=== PATIENT | female | born 1955 | race Caucasian/White ===

== ENCOUNTER 2023-12-24 12:06 | Inpatient (IN) | payer BC, MEDICARE, SELFPAY ==
[2023-12-24] VITALS (15 sets, daily range): BP systolic 90–124; BP diastolic 40–56; PULSE 2; BMI 30.7
--- NOTE | 2023-12-24 10:42 | ITS.CL.CATH ---
Production Engineer - Catheterization
Cardiac Catheterization
Procedure Report:
CARDIAC CATHETERIZATION REPORT
Date of Procedure: 12/24/2023
Referring: Fawn Archuleta MD
Indication: Post infarction recurrent ischemia with pulmonary edema
HEMODYNAMIC DATA
AO: 107/52
LV: 107/20
PCWP: 25
PA: 50/27
RV: 50/19
RA: 18
Oximetry: Ao 95%, PA 62%, cardiac output 4.5, cardiac index 2.3
LEFT VENTRICULOGRAPHY: Distal anterolateral and apical hypokinesis with EF 42%
CORONARY ANGIOGRAPHY
Dominance: Right
Left Main: Normal
LAD: Focal 90% mid LAD lesion with AMARJIT grade III flow distally with otherwise mild luminal disease
Circumflex: Normal
RCA: Trivial luminal irregularities in the mid RCA
Angioplasty: Patient underwent LAD PCI at the conclusion of the diagnostic study. Heparin was used for anticoagulation. Plavix 600 mg was administered at the procedure conclusion. A 6 [place] EBU 3.5 guide catheter was used. A BMW wire was easily
passed through the lesion. Direct stenting with a 3.0 x 12 Xience [place] point JUSTYN deployed at 14 olivia was followed by postdilatation with a 3.0 NC trek to 17 olivia. The final angiographic result was outstanding. There were no procedural complications.
Closure Device: None-the procedure was performed via the right radial artery and right femoral vein
Radiation dose (mGy): 511
DAP (cm2.Gy): 34.0
Fluoroscopy time: 6.9 minutes
CONCLUSIONS:
1. Elevated filling pressures with moderate pulmonary hypertension
2. Distal anterolateral and apical hypokinesis with EF 42%
3. Single-vessel CAD as described
4. Successful stenting of mid LAD lesion using 3.0 x 12 Xience JUSTYN with outstanding result
RECOMMENDATIONS: Continue medical therapy for CHF/LV dysfunction. Recommend DAPT for 12 months. Recommend echocardiography in 3 months
Copy to: Abdirahman Diaz DO, Marissa Isaac DO
Camden Cleveland MD, FACC, [facility]
--- NOTE | 2023-12-24 10:44 | CON.CAR ---
Consultation
Consultation Request
Date/Time Consultation Requested: 12/24/2023, 345pm
Date/Time Consultation Performed: 12/24/2023
Requesting Provider: Hospitalist
Performing Provider: turner
Reason for Consultation: NV
Medical History
-
Chief Complaint: Chest pain/SOB
History of Present Illness:
68 yo woman transferred for emergent cath after developing recurrent CP with pulmonary edema. She was admitted to [facility] 12-21 several days after TKA. She presented with SOB and some chest pain. CTA was negative for PE. She has chronic LBBB on
ECG. Cardiac enzymes were abnormal peaking at 1300 (hs TnI). I spoke late Monday afternoon with Dr Bonilla and she was clinically and hemodynamically stable at that time. Hb was low at 7.3 and plan was for tranfusion, diuresis and reevaluation Sat
12-22 to determine when to proceed with cardiac cath. On 12-22 she was evaluated by Dr Archuleta at [facility] and remained stable. Transfusion of 2 U PRBC had been given. She was treated with ASA and UFH and felt stable for deferring cath until 12-24.
Arrangements made for elective transfer. She had shortness of breath yesterday requiring BiPAP. This AM she was noted to develop recurrent chest pain radiating to back with acute CHF. I spoke with Dr Archuleta and arrangements made for emergent
transfer to the chemistry lab instructor at .
Cardiac cath showed distal anterolateral and apical hypokinesis, EF 42%, and single-vessel CAD with a 90% mid LAD lesion that was stented. She had elevated left and right heart filling pressures with moderate pulmonary hypertension.
Exam: Blood pressure 102/60, heart rate 76, respiratory 20
Neck no JVD visible
Cardiac: RRR S1-S2 no murmur
Lungs: Bibasilar rales
Extremities: Mild edema
Impression: 68-year-old woman with NV following TKA last week who developed worsening heart failure and recurrent ischemia with second elevation in cardiac enzymes last night into this morning. She was transferred urgently to [facility]
underwent catheterization demonstrating elevated filling pressures, mild to moderate left ventricular dysfunction, and single-vessel CAD with 90% mid LAD lesion which was stented.
Plan:
-DAPT for 12 months
-We will treat left ventricular dysfunction with lisinopril and metoprolol
-Repeat echo in 3 months. No indication to do a follow-up echo tomorrow as the patient had an echo 48 hours ago and a left ventriculogram today
-She will be admitted to the hospital service for management of her medical problems-I am quite concerned that she is infected with pneumonia and will need evaluation to be sure there is no joint infection
CCT 32 minutes
--- NOTE | 2023-12-24 13:55 | PTCARENOTE ---
Received the patient from the laboratory machinist in her bed. The patient is aaox3, vvs, 95% on 6L. Right wrist R-band intact. Positive right radial pulse noted. Right groin dressing c/d/i with a positive right pedal pulse noted. NSR is noted on the monitor.
She denies chest pain however, she does complain of right knee pain. she rates it a 5/10 on scale. An Aquacel dressing is cover her right knee. I instructed the patient on her activity restrictions and expected oob time. I oriented her to her room.
Her call barkley is within reach.
[2023-12-24] MEDS: TYLENOL 650 MG PO (14:17)
--- NOTE | 2023-12-24 14:29 | HPS.HSE ---
Addendum entered and electronically signed by Durga Rivera DO 01/01/24 14:40:
Home meds:
bupropion HCl 150 mg tablet,12 hr sustained-release (Wellbutrin SR) 150 mg PO DAILY 12/25/23
sertraline 100 mg tablet 100 mg PO DAILY 12/25/23
hydroxyzine pamoate 25 mg capsule 25 mg DAILY PRN anxiety 12/26/23
loperamide 2 mg-simethicone 125 mg tablet 1 tab PO Q3H PRN diarrhea 12/26/23
aspirin 81 mg chewable tablet (Children's Aspirin) 81 mg PO DAILY #100 tabs 12/28/23
clopidogrel 75 mg tablet 75 mg PO DAILY #30 tabs 12/28/23
furosemide 40 mg tablet 40 mg PO DAILY #30 tabs 12/28/23
lisinopril 2.5 mg tablet 2.5 mg PO DAILY #30 tabs 12/28/23
metoprolol tartrate 25 mg tablet 12.5 mg (1/2 x 25 mg) PO BID #30 tabs 12/28/23
potassium chloride 20 mEq tablet,extended release(part/cryst) 40 meq (2 x 20 mEq) PO DAILY #60 tabs 12/28/23
rosuvastatin 20 mg tablet 20 mg PO QPM #30 tabs 12/28/23
Addendum entered and electronically signed by Durga Rivera DO 12/24/23 16:31:
Procalcitonin 0.17. Afebrile. Will discontinue further antibiotics and observe.
Original Note:
Family Physician
-
Family Physician: Marissa Isaac
Chief Complaint
-
Transfer for cardiac catheterization
History of Present Illness
68-year-old female transferred from [facility] today for cardiac catheterization. Underwent stenting of her mid LAD today and we were asked to admit to our service.
Underwent right total knee arthroplasty on Monday, December 17. Started developing weakness malaise shortness of breath and cough on December 19. Went back to [facility] on December 20 and was admitted to the hospital
for workup of shortness of breath.
Admission diagnosis was possible congestive heart failure versus pneumonia, possible sepsis. Diagnosed with NSTEMI. Pulmonary embolism ruled out. Small to moderate right and small left pleural effusions noted on CT scan. Extensive interstitial
thickening and groundglass opacities throughout the lungs consistent with pulmonary edema.
Noted to have low-grade fever and mild leukocytosis with white blood cell count of 13,000 on admission, broad-spectrum antibiotics started.
Transfused 1 unit of packed red blood cells on December 21 due to postoperative anemia, hemoglobin was 7.3.
At some point required Levophed for hypotension, Precedex for agitation.
Medical History
Past Medical History
Past Medical History: Reports Other
Additional Past Medical History:
Essential hypertension
Osteoarthritis
Anxiety disorder
Colon cancer
Depression
Hyperlipidemia
Past Surgical History: Reports Other
Additional Past Surgical History:
Bowel resection
Breast biopsy
Right total knee arthroplasty
Social History
Tobacco: Former Smoker
Alcohol: Daily
Drug: None
Personal:
Living: With Family
Family History
Family History: Not pertinent
Allergies / Home Medications
Allergies reflects when Allergies were last updated in [employer].
Home Medications with original date entered in [employer]
Allergy/Medication List:
Allergies
Allergy/AdvReac Type Severity Reaction Status Date / Time
Latex, Natural Rubber Allergy Unknown Verified 12/24/23 13:29
oxycodone [From Percocet] Allergy Unknown Verified 12/24/23 13:29
Review of Systems
-
History Source: Patient
A 12 point ROS was completed and negative except as noted: Yes
Respiratory: Reports Cough
Physical Exam
Vital Signs
Vital Signs
Pulse BP Pulse Ox
67 98/47 93
04/21/24 14:00 12/24/23 14:00 12/24/23 14:00
Physical Exam
General: Well Developed, Well Nourished, No Apparent Distress and Comfortable
HEENT: NormoCephalic, Anicteric and Moist mucous membranes
Respiratory: Rhonchi
Cardiac: Regular Rhythm
Breast: Deferred by me
GI: Soft, Non Tender and Non Distended
Genito-urinary: Deferred by me
Musculoskeletal: No Clubbing, No Cyanosis and Edema, Right Upper Extremity
Skin: Warm, Dry and Other (Right knee dressing intact)
Neuro: AO x 3
Hematologic/Lymphatic: No Lymphadenopathy
Psych: Calm
Laboratory Results
-
12/24/23 13:31
12/24/23 13:54
Laboratory Results
Total Bilirubin Cancelled 12/24/23 13:54
AST Cancelled 12/24/23 13:54
ALT Cancelled 12/24/23 13:54
Alkaline Phosphatase Cancelled 12/24/23 13:54
Impression/Plan
-
Acute hypoxic respiratory failure -initially on BiPAP in [facility] but transition to nasal cannula oxygen during the day and BiPAP at nighttime. Currently on 6 L nasal cannula, wean down as able. Overall patient feels clinically improved
after cardiac catheterization today with less shortness of breath. Will place on CPAP at nighttime. TALHA suspect, will need outpatient sleep study.
NSTEMI -stable after cardiac catheterization today, drug-eluting stent placed to the mid LAD. Continue dual antiplatelet therapy. Cardiology following.
Recent sepsis -presumably due to pneumonia. Continue empiric antibiotics for now. Chest x-ray in the morning. Check procalcitonin.
Acute heart failure with reduced EF exacerbation -likely triggered by NSTEMI. Diuretics per cardiology.
Recent right total knee arthroplasty -consult PT/OT. Follow-up with orthopedics after discharge.
Postoperative anemia -required blood transfusion in [facility], likely postoperative acute blood loss anemia. Check hemoglobin in the morning.
Essential hypertension -relatively hypotensive.
Obesity due to excess calories
Full code
Spent 80 minutes reviewing records, discussing with physicians in our hospital, physicians in [facility], etc.
Discussed with Dr. Cleveland.
[2023-12-24 15:38] LABS: ALT (SGPT) 101 U/L (0-35); AST (SGOT) 74 U/L (14-36); Albumin 2.9 g/dl (3.5-5.0); Alkaline Phosphatase 237 U/L (38-126); Blood Urea Nitrogen 23 mg/dl (7-17); Carbon Dioxide 21 mmol/L (22-30); Chloride 105 mmol/L (98-107); Glucose 103 mg/dl (70-99); Potassium 3.7 mmol/L (3.5-5.1); Sodium 133 mmol/L (135-145); Total Bilirubin 1.9 mg/dl (0.2-1.3); Total Protein 5.6 g/dl (6.3-8.2); eGFR > 60.00
[2023-12-24] MEDS: LASIX 20 MG IV (15:42)
[2023-12-24] MEDS: FLUSH (NSS) 2 FLUSH IV (15:43)
[2023-12-24 15:50] LABS: Procalcitonin 0.17 ng/ml (0.0-0.25)
[2023-12-24] MEDS: CRESTOR 20 MG PO (17:51)
[2023-12-24] MEDS: LOVENOX 40 MG SC (17:51)
[2023-12-24] MEDS: ULTRAM 50 MG PO (20:48)
--- NOTE | 2023-12-24 21:55 | PTCARENOTE ---
Assumed care of patient at change of shift w/ spouse at bedside. Patient c/o 6/10 right knee pain, and describes as (throbbing/sharp). Roberto FELDER made aware and orders obtained for 50mg of Ultram. Medication administered at 20:48. Pt AAOx3,
tele monitor shows SR w/ BBBC, and sating 93-97% on 5L of O2. Pt appears WALTERS and at rest. Instructed pt to perform deep breathing exercises. Patient refuses to wear CPAP at HS. Right groin and right radial site C/D/I and no hematoma noted at this
time. Patient aware of activity restrictions. Right knee Aquacel dressing intact w/ ecchymosis below dressing. Swelling noted to patients: right thigh, knee, calf, and ankle. Right leg warm to touch and strong right DP pulse.Patient reports the
Aquacel dressing is due to come off tomorrow. Aware of POC, call barkley in reach.
[2023-12-25] VITALS (9 sets, daily range): BP systolic 100–130; BP diastolic 46–74; PULSE 77; O2SAT 95; BMI 30.4
[2023-12-25] MEDS: TYLENOL 650 MG PO ×2 (02:08→22:44)
[2023-12-25] MEDS: ROXICODONE 5 MG PO (03:06)
[2023-12-25 04:09] LABS: Hematocrit 24.5 % (37.0-47.0); Hemoglobin 8.1 g/dL (12.0-16.0); Mean Corp Hgb Conc. 33.1 g/dL (33.0-37.0); Mean Corpuscular Volume 96.8 fL (81.0-99.0); Mean Platelet Volume 10.7 fL (7.4-10.4); Platelet Count 145 10^3/uL (130-400); Red Blood Cell Count 2.53 10^6/uL (4.20-5.40); Red Cell Dist. Width 13.9 % (11.5-14.5); White Blood Cell Count 6.5 10^3/uL (4.8-10.8)
[2023-12-25 04:31] LABS: Blood Urea Nitrogen 20 mg/dl (7-17); Calcium 8.4 mg/dl (8.4-10.2); Carbon Dioxide 22 mmol/L (22-30); Chloride 108 mmol/L (98-107); Estimated Creatinine Clearance 96 ml/min; Glucose 97 mg/dl (70-99); Potassium 3.8 mmol/L (3.5-5.1); Sodium 135 mmol/L (135-145); eGFR > 60.00
--- NOTE | 2023-12-25 04:55 | PTCARENOTE ---
Patient restless in room and wincing with pain. Patient c/o right knee pain. Pain level 7/10 at rest and worse w/ movement. Patient not yet due for Ultram. Patient reports having Roxicodone at the other hospital, and it gave her good relief.
Reviewed allergy list w/ patient, confirmed she has taken Roxicodone in the past with no reaction. Jessie FELDER made aware and orders obtained for one time dose of 5mg Roxicodone. Patient w/ good relief, and reevaluated with no side
effects. Pain level decreased to a 4/10. Call barkley in reach.
[2023-12-25] MEDS: ZESTRIL 2.5 MG PO (08:19)
[2023-12-25] MEDS: ZOLOFT 100 MG PO (08:19)
[2023-12-25] MEDS: LOW STRENGTH ASPIRIN 81 MG PO (08:20)
[2023-12-25] MEDS: KCL 20 MEQ PO (08:20)
[2023-12-25] MEDS: PLAVIX 75 MG PO (08:20)
[2023-12-25] MEDS: LASIX 40 MG PO (08:20)
[2023-12-25] MEDS: WELLBUTRIN XL (24 hour extended release) 150 MG PO (08:20)
[2023-12-25] MEDS: LOPRESSOR 12.5 MG PO ×2 (08:20→19:52)
[2023-12-25 08:50] LABS: Glycohemoglobin (HgbA1c) 5.3 % (4.0-5.6)
[2023-12-25] MEDS: ULTRAM 50 MG PO ×2 (09:51→22:13)
--- NOTE | 2023-12-25 12:21 | CM ---
Chart reviewed. Patient is independent of ADLS, lives with her in a [address], [facility], ambulates with a rolling walker and a SPC. Patient is not current with VN, but is interested. Referral sent to [facility]. Plan is for the [facility] CM to follow
--- NOTE | 2023-12-25 13:59 | W.PN.HOSP.TC ---
Today's Communication/Plan
-
see outlined plan
Assessment / Plan
Assessment / Plan
Assessment:
Acute hypoxic respiratory failure
- initially on BiPAP - now transitioned to 5-6 L NC
- X-ray showing bilateral PNA - will cover with Zosyn for now, despite normal procal.
- wean O2 as able
- check BNP
- Consult Pulm to evaluate
N-STEMI
- s/p [facility] 12/23: single-vessel CAD with 90% mid LAD lesion which was stented.
- continue DAPT/BB/ZURI
- Echo in 3 months
- CBC cards follow up
Recent sepsis - presumably due to pneumonia
- X-ray showing bilateral PNA - will cover with Zosyn for now, despite normal procal.
Acute heart failure with reduced EF exacerbation - likely triggered by NSTEMI. Diuretics per cardiology.
Recent right total knee arthroplasty - consult PT/OT. Follow-up with orthopedics after discharge. can remove surgical dressing (was to be removed today)
Postoperative anemia - required blood transfusion in [facility], likely postoperative acute blood loss anemia (received 2 units PRBCs). Follow Hb here. check anemia studies. heme test stools.
Essential hypertension - monitor BP
Obesity due to excess calories
Full code
Anticipated Discharge: > 48 hours
Subjective/Interval History
-
Date of Service: December 25, 2023
remains SOB on 5L NC
denies CP
CXR shows bilateral PNA
Objective Data
-
Labs:
Laboratory Results
12/25/23
03:20
WBC 6.5
Hgb 8.1 L
Hct 24.5 L
Plt Count 145
Sodium 135
Potassium 3.8
Chloride 108 H
Carbon Dioxide 22
BUN 20 H
Creatinine 0.5 L
Glucose 97
Calcium 8.4
Vital Signs:
Vital Signs
Temp Pulse Resp BP Pulse Ox
99 F 84 38 122/64 90
12/25/23 07:05 12/25/23 12:37 12/25/23 12:36 12/25/23 12:37 12/25/23 12:37
I&O
12/24/23 12/25/23 12/26/23
06:59 06:59 06:59
Intake Total 840 / 840
Output Total 1100 / 1100
Balance -260 / -260
Physical Exam
-
General: Respiratory Distress (mild)
HEENT: Normocephalic and Atraumatic
Respiratory: Negative Wheezes
Cardiac: Regular Rhythm and S1/S2
GI: Soft
Neuro: AO x 3
Psych: Calm
Data Reviewed
-
Total Time Spent with Patient (in minutes): 42
Labs: Labs Reviewed by me
--- NOTE | 2023-12-25 14:55 | W.PN.CD ---
Today's Communication / Plan
-
TTE pending.
Furosemide 80 mg IV x1 now.
Furosemide 40 mg IV daily starting tomorrow.
GDMT when stabilized.
Impression / Plan
-
Impression/Plan: 68 y/o female with HTN, HLD and recent TKA transferred from [facility] with anemia and NSTEMI that destabilized with chest pain/pulmonary edema and required emergent catheterization and intervention.
#NSTEMI
-Acute, stable.
-S/P PCI to the 90% mLAD culprit lesion (Xience [place] 3.0 x 12 JUSTYN, post dilated with a 3.0 NCB to 17 NIKKI).
-DAPT with aspirin and clopidogrel for at least 12 months, followed by aspirin indefinitely.
-TTE pending.
#ICMO
-Acute.
-LVEF 42% on LVgram. TTE pending.
-GDMT as hemodynamics will tolerate.
#Hypoxic respiratory failure
-Acute, multifactorial.
-CXR suggestive of PNA + pulmonary edema.
-LVEDP = 20 mmHg, PCWP = 25 mmHg.
-Change furosemide to 80 mg IV now (clearly volume overloaded) and 40 mg IV daily starting tomorrow.
-Hospitalist treating with ABX.
-Low threshold for BiPAP.
#PPx
-SCD's for DVT/VTE.
-No role for PPI.
#Dispo
-IVU status.
-Full code.
Subjective/Interval History:
Stablized after PCI.
SaO2 91% on 5LNC.
Feels short of breath.
DATA:
CXR, 12/25/2023:
IMPRESSION:
Severe bilateral pneumonia. Cannot rule out superimposed interstitial edema.
Cardiac Catheterization/PCI, 12/24/2023:
CONCLUSIONS:
1. Elevated filling pressures with moderate pulmonary hypertension.
2. Distal anterolateral and apical hypokinesis with EF 42%.
3. Single-vessel CAD as described.
4. Successful stenting of mid LAD lesion using 3.0 x 12 Xience JUSTYN with outstanding result.
Physical Exam
Vital Signs/Labs
Vital Signs
Temp Pulse Resp BP Pulse Ox
37.2 C 84 38 122/64 90
12/25/23 07:05 12/25/23 12:37 12/25/23 12:36 12/25/23 12:37 12/25/23 12:37
12/24/23 12/25/23 12/26/23
11:59 11:59 11:59
Actual Weight 83 kg
12/25/23 03:20
12/25/23 03:20
Physical Exam
Constitutional: No acute distress and Comfortable
EENT: Anicteric and Moist mucous membranes
Cardiovascular: Rhythm & rate is regular, Pedal edema is absent, JVD present, S1S2 is normal and Murmur/rub/gallop absent
Respiratory: Wheeze Absent, Rhonchi Absent, Labored respirations and Crackles Present
GI: Soft, Distention absent, Flat, Non tender and Normal bowel sounds
Neuro/Psych: AO x 3
Other: Cath Site (Right radial access site is C/D/I.)
Data Reviewed
-
Date of Service: December 25, 2023
Medical Decision Making: Reviewed Test Results, Independent Historian Assessment and Test Interpretation
EKG: Tracing Personally Visualized and interpreted and Report Reviewed by me
X-Ray/CT/US/MRI/NUC/PET: Image Personally Visualized and interpreted and Report Reviewed by me
Medical Tests (PFT, Pathology etc): Image Personally Visualized and interpreted and Report Reviewed by me
Labs: Labs Reviewed by me
[2023-12-25 15:27] LABS: ALT (SGPT) 81 U/L (0-35); AST (SGOT) 50 U/L (14-36); Albumin 2.7 g/dl (3.5-5.0); Alkaline Phosphatase 244 U/L (38-126); Total Bilirubin 1.4 mg/dl (0.2-1.3); Total Protein 5.4 g/dl (6.3-8.2)
[2023-12-25 15:46] LABS: ACT-LR - POC > 397 Seconds (116-155)
[2023-12-25 15:50] LABS: NT-proBNP 5110 pg/ml
[2023-12-25] MEDS: LASIX 80 MG IV (16:07)
[2023-12-25] MEDS: ZOSYN 50 IV ×2 (16:25→22:10)
[2023-12-25 16:53] LABS: COVID-19 Antigen Negative (Negative)
--- NOTE | 2023-12-25 17:34 | CON.PUL ---
Consultation
Consultation Request
Date/Time Consultation Requested: 12/25/2023
Date/Time Consultation Performed: 12/25/2023
Requesting Provider: Dr. Rivera
Performing Provider: Dr. Rohan Pope
Reason for Consultation: Hypoxemic respiratory failure
Medical History
-
History of Present Illness:
68-year-old woman who was transferred from [facility] for cardiac catheterization on 12/24/2023. She underwent mid LAD stent placement and then admitted to the hospital for further evaluation of hypoxemia.
Apparently underwent knee arthroplasty on Monday, December 17. Developed some weakness, shortness of breath 2 days later on December 19. Admitted to [facility] on December 20. She was diagnosed with heart failure and non-ST elevation myocardial
infarction.
During that hospital stay pulmonary embolism was ruled out.
CT chest showed extensive interstitial thickening and groundglass opacities throughout both lungs consistent with pulmonary edema.
She was noted to have low-grade fevers with leukocytosis.
Empirically treated with antibiotics.
She also received 1 unit of packed red blood cells on December 21 for postoperative anemia.
We were consulted for evaluation of hypoxemia.
Past Medical History
Past Medical History: Other (See assessment and plan section)
Social History
Tobacco: Former Smoker
Alcohol: Daily
Drug: None
Personal:
Living: With Family
Employment: Employed
Family History
Family History: Reviewed & Not Pertinent
Allergies / Home Medications
Allergies
Allergy/AdvReac Type Severity Reaction Status Date / Time
Latex, Natural Rubber Allergy Unknown Verified 12/24/23 13:29
oxycodone [From Percocet] Allergy Nausea / Verified 12/24/23 21:28
Vomiting
Review of Systems
-
History Source: Patient
All other systems: Negative unless noted
Vitals / Labs / Diagnostic Testing
Vital Signs
Temp Pulse Resp BP Pulse Ox
99.5 F 90 28 130/63 93
12/25/23 16:30 12/25/23 16:22 12/25/23 16:30 12/25/23 16:22 12/25/23 16:30
Lab Data
12/25/23 03:20
12/25/23 03:20
Microbiology
12/25/23 16:31 Nasal Swab Influenza Types A & B (JANETT) - Final
Negative for Influenza A & B, NAAT
Negative results must be combined with clinical observations
and patient history.
Nucleic Acid Amplification test (NAAT)performed on the
[employer] platform.
12/24/23 15:01 Nose MRSA Screen - Final
No Methicillin Resistant Staphylococcus aureus isolated.
Diagnostic Testing:
Physical Exam
-
HEENT: Normocephalic
Cardiovascular: S1/S2
Respiratory: Clear and Non-Labored Respirations
GI: Soft and Non Distended
Neurology: Awake and No Motor Deficits
Skin: Warm
General: Respiratory Distress (n)
Assessment
-
Acute hypoxemic respiratory failure
Chest x-ray 12/25/2023: Shows severe bilateral pneumonia versus pulmonary edema.
No leukocytosis/normal procalcitonin: Cannot rule out infectious etiology.
Increased proBNP: Suggest cardiogenic pulmonary edema 5110
Pulmonary capillary wedge pressures 25
Anemia: Possibly postoperative
Non-ST elevation myocardial infarction: LVEF 42% on ventriculogram
Status post PCI 90% mid LAD lesion stented successfully 12/24/2023
Conditions present prior admission:
Recent right total knee arthroplasty 12/2023
Postoperative anemia
Hypertension
Hyperlipidemia
Obesity
Assessment and plan:
Clinically improved since admission, initially required BiPAP.
Currently on 4 to 5 L nasal cannula.
Unclear whether pneumonia is present: There is no leukocytosis, procalcitonin is normal.
Not unreasonable to treat with short course of antibiotics.
Continue diuresis IV
Follow creat and electrolytes.
Follow cultures
-
Will repeat chest x-ray tomorrow, if there is rapid improvement on hypoxemia and clearing of chest x-ray, consider discontinuation of antibiotics.
-
Continue with cardiac management.
-
Incentive spirometry
Increase activity when able
-
Will need radiographic follow-up after discharge to document resolution of infiltrates.
-
Follow Hb, no indication for transfusion.
-
Family updated at bedside by Dr. Pope on 12/25/2023
[2023-12-25] MEDS: LOVENOX 40 MG SC (18:35)
[2023-12-25] MEDS: CRESTOR 20 MG PO (18:35)
--- NOTE | 2023-12-25 19:08 | PTCARENOTE ---
Pt dyspneic at rest this afternoon, remains on O2 at 6L/min. Seen by Dr Waddell and Dr Ramos. IV antibx ordered and IV Lasix ordered and given. Pt diuresed large amt of urine, approx 2000 ml clear yellow. Purewick in place at Pt request as she felt
too SOB to get OOB earlier. She report feeling better now and much less SOB. She remains on O2 at 6L/min.
--- NOTE | 2023-12-25 20:20 | PTCARENOTE ---
Assumed care at 1900. Patient in bed siting up, family at bedside. Oxygen 6 liters NC, reports less shortness of breath, dyspneic with repositioning and at rest, RR 22. POX 93% on 6 liters. Left base fine rales, right base diminished. Trigeminy on
tele. Purwick in place, large volumes of pale yellow urine. Right knee incision healing open to air. +1 edema RLE, no edema LLE. Right radial dressing CDI. Call barkley in reach
[2023-12-26] VITALS (9 sets, daily range): BP systolic 95–129; BP diastolic 40–68; PULSE 78; O2SAT 92; BMI 29.8
--- NOTE | 2023-12-26 01:05 | PTCARENOTE ---
Patient awake reading, repositioned in bed. Right leg elevated, ice applied to the her right knee. Pain better controlled with ice. Purwick replaced. Call barkley in reach
[2023-12-26] MEDS: ZOSYN 50 IV ×4 (04:25→21:38)
[2023-12-26] MEDS: TYLENOL 650 MG PO ×2 (04:26→15:52)
[2023-12-26 05:06] LABS: % Basophils 0.3 % (0-2); % Immature Granulocytes 1.8 % (0-0.5); % Lymphocytes 18.4 % (20.5-51.1); % Monocytes 9.4 % (1.7-9.3); % Neutrophils 69.1 % (42.2-75.2); Absolute Eosinophils 0.1 10^3/uL (0-0.7); Absolute Immature Granulocytes 0.1 10^3/uL (0-0.05); Absolute Lymphocytes 1.3 10^3/uL (1.2-3.4); Absolute Monocytes 0.6 10^3/uL (0.1-0.6); Absolute Neutrophils 4.7 10^3/uL (1.4-6.5); Hematocrit 26.7 % (37.0-47.0); Hemoglobin 9.2 g/dL (12.0-16.0); Mean Corp Hgb Conc. 34.5 g/dL (33.0-37.0); Mean Corpuscular Hgb 32.4 pg (27.0-31.0); Mean Platelet Volume 10.3 fL (7.4-10.4); Nucleated Red Blood Cells % 0 %; Platelet Count 178 10^3/uL (130-400); Red Blood Cell Count 2.84 10^6/uL (4.20-5.40); Red Cell Dist. Width 13.2 % (11.5-14.5); White Blood Cell Count 6.8 10^3/uL (4.8-10.8)
[2023-12-26 05:38] LABS: ALT (SGPT) 58 U/L (0-35); AST (SGOT) 34 U/L (14-36); Alkaline Phosphatase 241 U/L (38-126); Blood Urea Nitrogen 16 mg/dl (7-17); Calcium 8.5 mg/dl (8.4-10.2); Carbon Dioxide 28 mmol/L (22-30); Chloride 104 mmol/L (98-107); Estimated Creatinine Clearance 95 ml/min; Glucose 98 mg/dl (70-99); Iron 52 ug/dl (37-170); Potassium 3.3 mmol/L (3.5-5.1); Sodium 136 mmol/L (135-145); Total Bilirubin 1.3 mg/dl (0.2-1.3); Total Protein 5.8 g/dl (6.3-8.2); eGFR > 60.00
[2023-12-26 05:46] LABS: Percent Saturation 21 % (20-50); Total Iron Binding Capacity 241 ug/dl (265-497)
[2023-12-26 06:39] LABS: Folate 7.7 ng/ml (2.76-20); Vitamin B12 324 pg/ml (239-931)
--- NOTE | 2023-12-26 07:27 | W.PN.CD ---
Today's Communication / Plan
-
Venous USG
ECHO
continue diuresis and ABX
Impression / Plan
-
Impression/Plan: 68 y/o female with HTN, HLD and recent TKA transferred from [facility] with anemia and NSTEMI that destabilized with chest pain/pulmonary edema and required emergent catheterization and intervention.
#NSTEMI
-Acute, stable.
-S/P PCI to the 90% mLAD culprit lesion (Xience Skypoint 3.0 x 12 JUSTYN, post dilated with a 3.0 NCB to 17 NIKKI).
-DAPT with aspirin and clopidogrel for at least 12 months, followed by aspirin indefinitely.
-TTE pending.
#ICMO
-Acute.
-LVEF 42% on LVgram. TTE today
-GDMT as hemodynamics will tolerate.
#Hypoxic respiratory failure
-Acute, multifactorial.
-CXR suggestive of PNA + pulmonary edema.
-LVEDP = 20 mmHg, PCWP = 25 mmHg.
-Lasix 40mg IV qd. Diuresing
-ABX continue
- CXR done this AM
- Hypoxia persists despite CHF rx. Definitely more going on here as still requiring 6+ L/min O2
- Venous usg to rule out DVT will be done (in case DVT post TKA)
#PPx
-SCD's for DVT/VTE.
-No role for PPI.
Subjective/Interval History:
Stablized after PCI.
SaO2 91% on 5LNC.
Feels short of breath.
DATA:
CXR, 12/25/2023:
IMPRESSION:
Severe bilateral pneumonia. Cannot rule out superimposed interstitial edema.
Cardiac Catheterization/PCI, 12/24/2023:
CONCLUSIONS:
1. Elevated filling pressures with moderate pulmonary hypertension.
2. Distal anterolateral and apical hypokinesis with EF 42%.
3. Single-vessel CAD as described.
4. Successful stenting of mid LAD lesion using 3.0 x 12 Xience JUSTYN with outstanding result.
Physical Exam
Vital Signs/Labs
Vital Signs
Temp Pulse Resp BP Pulse Ox
97.7 F 71 16 107/40 94
12/26/23 04:16 12/26/23 06:00 12/26/23 04:16 12/26/23 04:19 12/26/23 06:00
12/25/23 12/26/23 12/27/23
06:59 06:59 06:59
Actual Weight 182 lb 15.739 oz 178 lb 12.718 oz
12/26/23 04:25
12/26/23 04:25
12/25/23
15:18
Ses-R-Unveegokmji Pept 5110
Physical Exam
Constitutional: No acute distress
Cardiovascular: Rhythm & rate is regular, S1S2 is normal and Murmur/rub/gallop absent
Respiratory: Respiratory effort normal and Rhonchi Present (good aeration and exam overall improved)
GI: Normal bowel sounds
Neuro/Psych: AO x 3
Data Reviewed
-
Date of Service: December 26, 2023
[2023-12-26] MEDS: LOW STRENGTH ASPIRIN 81 MG PO (08:29)
[2023-12-26] MEDS: LOPRESSOR 12.5 MG PO ×2 (08:29→20:04)
[2023-12-26] MEDS: WELLBUTRIN XL (24 hour extended release) 150 MG PO (08:29)
[2023-12-26] MEDS: ZESTRIL 2.5 MG PO (08:29)
[2023-12-26] MEDS: PLAVIX 75 MG PO (08:29)
[2023-12-26] MEDS: LASIX 40 MG IV (08:31)
[2023-12-26] MEDS: ZOLOFT 100 MG PO (08:31)
[2023-12-26] MEDS: FLUSH (NSS) 1 FLUSH IV (08:31)
[2023-12-26] MEDS: KCL 20 MEQ PO (08:35)
--- NOTE | 2023-12-26 10:35 | W.PN.PUL3 ---
Today's Communication / Plan
-
Continue diuretic
Continue antibiotics
Wean off oxygen
Assessment
-
Acute hypoxemic respiratory failure
Chest x-ray 12/25/2023: Shows severe bilateral pneumonia versus pulmonary edema.
No leukocytosis/normal procalcitonin: Cannot rule out infectious etiology.
Increased proBNP: Suggest cardiogenic pulmonary edema 5110
Pulmonary capillary wedge pressures 25
Anemia: Possibly postoperative
Non-ST elevation myocardial infarction: LVEF 42% on ventriculogram
Status post PCI 90% mid LAD lesion stented successfully 12/24/2023
Conditions present prior admission:
Recent right total knee arthroplasty 12/2023
Postoperative anemia
Hypertension
Hyperlipidemia
Obesity
Assessment and plan:
Clinically improved
Has not required noninvasive mechanical ventilation since admission.
Continue oxygen supplementation wean down as able.
Feels better this morning. Less breathless
Less JVD.
-
Unclear whether pneumonia is present: There is no leukocytosis, procalcitonin is normal.
Continue antibiotics for now.
Continue diuresis IV
Follow creat and electrolytes.
Follow cultures: So far negative. Remains afebrile
Will continue to follow closely.
-
Chest x-ray 12/25/2023: Stable bilateral infiltrates. No pleural effusion.
-
Continue with cardiac management.
Cardiology following. Correspondence reviewed.
Diuresis will continue continue to monitor electrolytes and renal function.
-
Incentive spirometry
Increase activity when able
-
Will need radiographic follow-up after discharge to document resolution of infiltrates.
-
Follow Hb, no indication for transfusion. Hemoglobin improving.
-
Family updated at bedside by Dr. Pope on 12/25/2023 and 12/26/2023.
Subjective Data
-
Date of Service:
Date of Service: December 26, 2023
Chief Complaint: Pulmonary Follow Up (Acute hypoxemic respiratory failure)
Subjective:
No complaints overnight
Diuresed well
Denies any significant coughing, denies hemoptysis
Shortness of breath improving
Review of Systems
General: Fever (n)
Cardiopulmonary: Dyspnea (improved)
GI: Abdominal Pain (b)
Neuro: Headache (n)
Objective Data
Data Reviewed
Vital Signs / I&O / Oxygen:
Vital Signs
Temp Pulse Resp BP Pulse Ox
98.2 F 77 18 109/50 95
12/26/23 08:19 12/26/23 09:00 12/26/23 08:19 12/26/23 08:17 12/26/23 09:00
Intake and Output
12/25/23 12/26/23 12/27/23
06:59 06:59 06:59
Intake Total 840 / 840 940 / 940
Output Total 1100 / 1100 3650 / 3650 1300 / 1300
Balance -260 / -260 -2710 / -2710 -1300 / -1300
SaO2 95
Nasal Cannula flow liters per 6
minute
Physical Exam
General: Respiratory Distress (n)
HEENT: Normocephalic
Cardiovascular: S1-S2
Respiratory: Wheeze (n), Crackles and Non-Labored Respirations
GI: Soft and Non Distended
Neurology: Awake, Oriented, AO x 3 and No Motor Deficits
Labs/Micro/Reports
Lab Data
12/26/23 04:25
12/26/23 04:25
Microbiology
12/25/23 16:31 Nasal Swab Influenza Types A & B (JANETT) - Final
Negative for Influenza A & B, NAAT
Negative results must be combined with clinical observations
and patient history.
Nucleic Acid Amplification test (NAAT)performed on the
[employer] platform.
12/24/23 15:01 Nose MRSA Screen - Final
No Methicillin Resistant Staphylococcus aureus isolated.
[2023-12-26] MEDS: ULTRAM 50 MG PO (11:04)
--- NOTE | 2023-12-26 11:31 | CM ---
Chart reviewed. Patient is independent of ADLS, lives with her in a [address] [facility], [address] [facility], ambulates with a rolling walker. Referral sent to [facility]. Plan is for the patient to return home with [facility]. CM to follow
--- NOTE | 2023-12-26 13:09 | W.PN.UPDATE ---
Update Note
Progress Note Update
Patient seen evaluated at bedside. She is status post right total knee arthroplasty performed by Dr. Escamilla recently. He asked me to see the patient as she was transferred here for cardiac care. Patient reports that she has some ongoing right knee
pain but clearly is more concerned with her respiratory status. He was evaluated incision appears well-healed without any neil-incisional erythema or single ecchymotic staining, no drainage there is moderate swelling noted. Distal motor and
sensation grossly intact
68-year-old female status post recent right total knee arthroplasty with subsequent development of NSTEMI requiring catheterization
No plans for orthopedic intervention during this hospitalization in November
Continue DVT prophylaxis unless otherwise contraindicated medically
Pain control
PT OT
Follow-up with Dr. Escamilla on an outpatient basis as previously scheduled
--- NOTE | 2023-12-26 14:06 | W.PN.HOSP.TC ---
Today's Communication/Plan
-
continue IV Abx
continue IV Lasix
wean O2
Assessment / Plan
Assessment / Plan
Assessment:
Acute hypoxic respiratory failure
- initially on BiPAP - now transitioned to 5-6 L NC
- wean O2 as able
- X-ray showing bilateral PNA - will cover with Zosyn, day 2. normal procalcitonin. Pulm following
N-STEMI
- s/p C 12/23: single-vessel CAD with 90% mid LAD lesion which was stented.
- continue DAPT/BB/ZURI
- Echo in 3 months
- CBC cards follow up
Recent sepsis - presumably due to pneumonia
- X-ray showing bilateral PNA - will cover with Zosyn, day 2. normal procalcitonin. Pulm following
Acute heart failure with reduced EF exacerbation
- BNP 5110; consistent with likely acute HFrEF. continue IV Lasix - requires intensive monitoring. Echo pending.
- GDMT with ZURI, BB
Elevated LFTs likely from acute CHF
- monitor CMP
Recent right total knee arthroplasty
- ortho evaluated; well healing incision
- PT/OT - home VN
Postoperative anemia - required blood transfusion in [facility], likely postoperative acute blood loss anemia (received 2 units PRBCs). Follow Hb here. check anemia studies. heme test stools.
Essential hypertension - monitor BP
Obesity due to excess calories
Hypokalemia
- replete daily standing dose
DVT ppx: Lovenox
Full code
Anticipated Discharge: > 48 hours
Subjective/Interval History
-
Date of Service: December 26, 2023
remains on 6L but feels less SOB
no chest pain
Objective Data
-
Labs:
Laboratory Results
12/26/23
04:25
WBC 6.8
Hgb 9.2 L
Hct 26.7 L
Plt Count 178 D
Sodium 136
Potassium 3.3 L
Chloride 104
Carbon Dioxide 28
BUN 16
Creatinine 0.5 L
Glucose 98
Calcium 8.5
Total Bilirubin 1.3
AST 34
ALT 58 H
Alkaline Phosphatase 241 H
Vital Signs:
Vital Signs
Temp Pulse Resp BP Pulse Ox
98.5 F 79 18 95/49 93
12/26/23 11:20 12/26/23 13:00 12/26/23 11:20 12/26/23 11:20 12/26/23 13:00
I&O
12/25/23 12/26/23 12/27/23
06:59 06:59 06:59
Intake Total 840 / 840 940 / 940
Output Total 1100 / 1100 3650 / 3650 1300 / 1300
Balance -260 / -260 -2710 / -2710 -1300 / -1300
Physical Exam
-
General: No Apparent Distress
HEENT: Normocephalic and Atraumatic
Respiratory: Crackles and Decreased Breath Sounds; Negative Wheezes or Rales
Cardiac: Regular Rhythm and S1/S2
GI: Soft
Genito-urinary: No Costovertebral Tender
Musculoskeletal: No Edema
Neuro: AO x 3
Hematologic / Lymphatic: No Lymphadenopathy
Psych: Calm
Data Reviewed
-
Total Time Spent with Patient (in minutes): 51
Labs: Labs Reviewed by me
--- NOTE | 2023-12-26 14:11 | PTCARENOTE ---
Pt OOB in chair with PT, purewick removed. She remains on O2 at 6L, unable to wean to 5L without O2 sat dropping into mid 80's. I.S. instructions given and encouraged 10 times/hr. Pt using I.S.
[2023-12-26] MEDS: MIRALAX 17 GRAMS PO (15:32)
[2023-12-26] MEDS: LOVENOX 40 MG SC (18:03)
[2023-12-26] MEDS: CRESTOR 20 MG PO (18:03)
--- NOTE | 2023-12-26 18:20 | PTCARENOTE ---
Diffuse papular rash noted on Pt's back, Pt denies itching currently. Dr Waddell aware and came to see Pt. Hydrocortisone cream ordered, will apply if Pt c/o itching.
--- NOTE | 2023-12-26 18:21 | PTCARENOTE ---
Pt sat OOB in chair all afternoon, after working with PT, mayank well. She states she is feeling better this evening, no c/o SOB at rest. She does get WALTERS.O2 on at 6L/min.
--- NOTE | 2023-12-26 21:09 | PTCARENOTE ---
Assumed care. patient returning from the bathroom using rolling walker. Expressed feeling better. Lungs CTA and shortness of breath improved. Oxygen weaned to 4 liters NC. Right knee incision [employer], edema to right knee and leg unchanged. Ice applied
to knee and elevated in bed.
[2023-12-26] MEDS: MELATONIN 5 MG PO (21:38)
[2023-12-27] VITALS (8 sets, daily range): BP systolic 95–120; BP diastolic 50–68; PULSE 70; O2SAT 100; BMI 29.1
[2023-12-27] MEDS: ZOSYN 50 IV ×4 (03:36→22:04)
[2023-12-27 04:37] LABS: % Basophils 0.1 % (0-2); % Immature Granulocytes 1.4 % (0-0.5); % Lymphocytes 18.3 % (20.5-51.1); % Monocytes 7.9 % (1.7-9.3); % Neutrophils 71.3 % (42.2-75.2); Absolute Eosinophils 0.1 10^3/uL (0-0.7); Absolute Immature Granulocytes 0.1 10^3/uL (0-0.05); Absolute Lymphocytes 1.4 10^3/uL (1.2-3.4); Absolute Monocytes 0.6 10^3/uL (0.1-0.6); Absolute Neutrophils 5.6 10^3/uL (1.4-6.5); Hematocrit 26.5 % (37.0-47.0); Hemoglobin 9.3 g/dL (12.0-16.0); Mean Corp Hgb Conc. 35.1 g/dL (33.0-37.0); Mean Corpuscular Volume 91.1 fL (81.0-99.0); Mean Platelet Volume 10.1 fL (7.4-10.4); Nucleated Red Blood Cells % 0 %; Platelet Count 233 10^3/uL (130-400); Red Blood Cell Count 2.91 10^6/uL (4.20-5.40); Red Cell Dist. Width 13.1 % (11.5-14.5); White Blood Cell Count 7.9 10^3/uL (4.8-10.8)
--- NOTE | 2023-12-27 04:41 | PTCARENOTE ---
Incontinent of small amount of dark brown stool. Hemoccult positive. Care provided. Walked the bathroom, purwick discontinued. Labs collected. Oxygen 4 liters NC POX 91-92%, dyspneic with activity, recovers with rest
[2023-12-27 05:15] LABS: ALT (SGPT) 50 U/L (0-35); AST (SGOT) 38 U/L (14-36); Alkaline Phosphatase 284 U/L (38-126); Blood Urea Nitrogen 15 mg/dl (7-17); Calcium 8.7 mg/dl (8.4-10.2); Carbon Dioxide 25 mmol/L (22-30); Chloride 101 mmol/L (98-107); Estimated Creatinine Clearance 93 ml/min; Glucose 110 mg/dl (70-99); Potassium 3.2 mmol/L (3.5-5.1); Sodium 134 mmol/L (135-145); Total Bilirubin 1.4 mg/dl (0.2-1.3); Total Protein 5.8 g/dl (6.3-8.2); eGFR > 60.00
[2023-12-27] MEDS: ZESTRIL 2.5 MG PO (08:40)
[2023-12-27] MEDS: WELLBUTRIN XL (24 hour extended release) 150 MG PO (08:40)
[2023-12-27] MEDS: ZOLOFT 100 MG PO (08:40)
[2023-12-27] MEDS: KCL 20 MEQ PO ×2 (08:41→10:04)
[2023-12-27] MEDS: LOW STRENGTH ASPIRIN 81 MG PO (08:41)
[2023-12-27] MEDS: LOPRESSOR 12.5 MG PO ×2 (08:41→19:46)
[2023-12-27] MEDS: PLAVIX 75 MG PO (08:41)
[2023-12-27] MEDS: LASIX 40 MG IV (08:42)
[2023-12-27] MEDS: MIRALAX PO (08:42)
--- NOTE | 2023-12-27 10:06 | W.PN.PUL3 ---
Today's Communication / Plan
-
Continue diuretics
Consider transition to oral antibiotic
Incentive spirometry
Increase mobility as able
Wean oxygen as able
Home oxygen assessment closer to discharge
Will need eventual radiographic follow-up
Assessment
-
Acute hypoxemic respiratory failure
Chest x-ray 12/25/2023: Shows severe bilateral pneumonia versus pulmonary edema.
No leukocytosis/normal procalcitonin: Cannot rule out infectious etiology.
Increased proBNP: Suggest cardiogenic pulmonary edema 5110
Pulmonary capillary wedge pressures 25
Anemia: Possibly postoperative
Non-ST elevation myocardial infarction: LVEF 42% on ventriculogram
Status post PCI 90% mid LAD lesion stented successfully 12/24/2023
Conditions present prior admission:
Recent right total knee arthroplasty 12/2023
Postoperative anemia
Hypertension
Hyperlipidemia
Obesity
Assessment and plan:
Clinically improved
Remains on supplemental oxygen.
Continue oxygen supplementation wean down as able. Maintain pulse ox above 90%.
Decreased oxygen supplementation to 2 L. Pulse ox is 96% sitting out of bed.
Continue to wean down, home oxygen assessment tomorrow.
-
Chest x-ray 12/26/2023: Stable bilateral infiltrates. No pleural effusion.
Unclear whether pneumonia is present: There is no leukocytosis, procalcitonin is normal.
Given lack of fevers or leukocytosis: Consider transition to oral antibiotics and complete total of 7 days.
Currently on Zosyn day 3
Follow cultures: So far negative.
Will continue to follow closely.
-
Continue diuresis IV, fluid balance negative, weight trending lower.
Follow creat and electrolytes. Currently stable creatinine.
Replete potassium per primary team.
-
Continue with cardiac management.
Cardiology following. Correspondence reviewed.
-
Incentive spirometry
Increase activity when able
Physical therapy as tolerated.
-
Will need radiographic follow-up after discharge to document resolution of infiltrates.
-
Follow Hb, no indication for transfusion. Hemoglobin improving.
-
Family updated at bedside by Dr. Pope on 12/25/2023 and 12/26/2023, 12/27/2023
-
From my perspective hopefully discharge in the next 24 hours. May need oxygen temporarily.-
Subjective Data
-
Date of Service:
Date of Service: December 27, 2023
Chief Complaint: Pulmonary Follow Up (Acute hypoxemic respiratory failure)
Subjective:
Overall feels better.
Less short of breath
No significant phlegm production or hemoptysis
Review of Systems
General: Fever (n)
Cardiopulmonary: Dyspnea (improved) and Chest Pain (n)
GI: Abdominal Pain (n) and Nausea (n)
Neuro: Headache (n)
Objective Data
Data Reviewed
Vital Signs / I&O / Oxygen:
Vital Signs
Temp Pulse Resp BP Pulse Ox
98.2 F 81 18 104/51 93
12/27/23 06:51 12/27/23 06:51 12/27/23 06:51 12/27/23 04:01 12/27/23 07:51
Intake and Output
12/26/23 12/27/23 12/28/23
06:59 06:59 06:59
Intake Total 940 / 940 200 / 200
Output Total 3650 / 3650 1850 / 1850
Balance -2710 / -2710 -1650 / -1650
SaO2 93
Nasal Cannula flow liters per 4
minute
Physical Exam
General: Respiratory Distress (n)
HEENT: Normocephalic
Cardiovascular: S1-S2
Respiratory: Wheeze (n), Crackles and Non-Labored Respirations
GI: Soft and Non Distended
Neurology: Awake, Oriented, AO x 3 and No Motor Deficits
Labs/Micro/Reports
Lab Data
12/27/23 04:16
12/27/23 04:17
Microbiology
12/25/23 16:31 Nasal Swab Influenza Types A & B (JANETT) - Final
Negative for Influenza A & B, NAAT
Negative results must be combined with clinical observations
and patient history.
Nucleic Acid Amplification test (NAAT)performed on the
[employer] platform.
12/24/23 15:01 Nose MRSA Screen - Final
No Methicillin Resistant Staphylococcus aureus isolated.
[2023-12-27] MEDS: TYLENOL 650 MG PO ×2 (10:37→21:25)
--- NOTE | 2023-12-27 10:45 | W.PN.CD ---
Today's Communication / Plan
-
-Appears to be clinically stable from a cardiac standpoint; continue DAPT with aspirin and clopidogrel for at least 12 months, followed by aspirin indefinitely.
-Will transition to Lasix 40 mg PO daily.
-Continue other cardiac medications.
-No further cardiac recommendations at this time; outpatient follow-up with Cardiology.
Impression / Plan
-
Impression/Plan: 68 y/o female with HTN, HLD and recent TKA transferred from [facility] with anemia and NSTEMI that destabilized with chest pain/pulmonary edema and required emergent catheterization and intervention.
#NSTEMI
-S/P PCI to the 90% mLAD culprit lesion (Xience Skypoint 3.0 x 12 JUSTYN, post dilated with a 3.0 NCB to 17 NIKKI).
-Appears to be clinically stable from a cardiac standpoint; continue DAPT with aspirin and clopidogrel for at least 12 months, followed by aspirin indefinitely.
#ICMO
-Acute.
-LVEF 42% on LVgram; EF 50% on TTE.
#Hypoxic respiratory failure
-Acute, multifactorial.
-CXR suggestive of PNA + pulmonary edema.
-LVEDP = 20 mmHg, PCWP = 25 mmHg.
-Will transition to Lasix 40 mg PO daily.
-ABX as per primary Hospitalist team.
#PPx
-SCD's for DVT/VTE.
-No role for PPI.
Subjective/Interval History:
No major events overnight.
DATA:
CXR, 12/25/2023:
IMPRESSION:
Severe bilateral pneumonia. Cannot rule out superimposed interstitial edema.
Cardiac Catheterization/PCI, 12/24/2023:
CONCLUSIONS:
1. Elevated filling pressures with moderate pulmonary hypertension.
2. Distal anterolateral and apical hypokinesis with EF 42%.
3. Single-vessel CAD as described.
4. Successful stenting of mid LAD lesion using 3.0 x 12 Xience JUSTYN with outstanding result.
Physical Exam
Vital Signs/Labs
Vital Signs
Temp Pulse Resp BP Pulse Ox
98.2 F 81 18 104/51 93
12/27/23 06:51 12/27/23 06:51 12/27/23 06:51 12/27/23 04:01 12/27/23 07:51
12/26/23 12/27/23 12/28/23
06:59 06:59 06:59
Actual Weight 81.1 kg 79.4 kg
12/27/23 04:16
12/27/23 04:17
12/25/23
15:18
Hxk-O-Spsjizlvjur Pept 5110
Physical Exam
Constitutional: No acute distress and Comfortable
EENT: Anicteric
Cardiovascular: Rhythm & rate is regular, Pedal edema present (trace), Systolic murmur present (2/6) and S1S2 is normal
Respiratory: Respiratory effort normal and Rhonchi Present (Mild bibasilar)
GI: Soft
Neuro/Psych: AO x 3
Other: Skin
Data Reviewed
-
Date of Service: December 27, 2023
EKG: Tracing Personally Visualized and interpreted (Telemetry: Sinus rhythm)
Echo: Tracing Personally Visualized and interpreted (EF 50%)
Medical Tests (PFT, Pathology etc): Discussed with Patient and Discussed with Family ( and daughter at bedside)
Labs: Labs Reviewed by me
--- NOTE | 2023-12-27 11:49 | CM ---
Chart reviewed. Patient is independent of ADLS, lives with her in a 2 [address], 1 [facility], ambulates with a rolling walker and SPC. Patient on 2L NC. Will need to assess if patient will need home O2. Plan is for the patient to return home with
VN. CM to follow
[2023-12-27] MEDS: ULTRAM 50 MG PO ×2 (14:10→22:33)
--- NOTE | 2023-12-27 14:36 | W.PN.HOSP.TC ---
Today's Communication/Plan
-
wean O2
continue PO Lasix
continue IV Abx
possible DC in 24 hours
Assessment / Plan
Assessment / Plan
Assessment:
Acute hypoxic respiratory failure
- initially on BiPAP - now transitioned to 5-6 L NC
- wean O2 as able; currently 2L
- X-ray showing bilateral PNA - will cover with Zosyn, day 3 of total 5-7 days. normal procalcitonin. Pulm following
N-STEMI
- s/p LHC 12/23: single-vessel CAD with 90% mid LAD lesion which was stented.
- continue DAPT/BB/ZURI
- Echo in 3 months
- CBC cards follow up
Recent sepsis - presumably due to pneumonia
- X-ray showing bilateral PNA - will cover with Zosyn, day 3 of total 5-7 days. normal procalcitonin. Pulm following
Acute heart failure with reduced EF exacerbation
- BNP 5110; consistent with likely acute HFrEF.
- s/p IV Lasix
- continue PO Lasix
- Echo: EF 50%, mild global hypokinesis. Abnormal (paradoxical) septal motion consistent with left bundle branch block. Mild to mod MR, Mod TR. Moderate TR. Estimated PASP 52 mmHg, assuming and estimated RA 3 mmHg.
- GDMT with ZURI, BB
Heat rash
- steroid cream added
Elevated LFTs likely from acute CHF
- monitor CMP
Recent right total knee arthroplasty
- ortho evaluated; well healing incision
- PT/OT - home VN
Postoperative anemia - required blood transfusion in [facility], likely postoperative acute blood loss anemia (received 2 units PRBCs). Follow Hb here. check anemia studies. heme test stools.
Essential hypertension - monitor BP
Obesity due to excess calories
Hypokalemia
- replete daily standing dose
DVT ppx: Lovenox
Full code
Anticipated Discharge: 24 - 48 hours
Subjective/Interval History
-
Date of Service: December 27, 2023
feeling better, less SOB
no cough or phlegm production
Objective Data
-
Labs:
Laboratory Results
12/27/23 12/27/23
04:16 04:17
WBC 7.9
Hgb 9.3 L
Hct 26.5 L
Plt Count 233 D
Sodium 134 L
Potassium 3.2 L
Chloride 101
Carbon Dioxide 25
BUN 15
Creatinine 0.5 L
Glucose 110 H
Calcium 8.7
Total Bilirubin 1.4 H
AST 38 H
ALT 50 H
Alkaline Phosphatase 284 H
Vital Signs:
Vital Signs
Temp Pulse Resp BP Pulse Ox
98.1 F 71 16 95/54 94
12/27/23 11:19 12/27/23 12:00 12/27/23 11:19 12/27/23 11:20 12/27/23 11:19
I&O
12/26/23 12/27/23 12/28/23
06:59 06:59 06:59
Intake Total 940 / 940 200 / 200
Output Total 3650 / 3650 1850 / 1850
Balance -2710 / -2710 -1650 / -1650
Physical Exam
-
General: No Apparent Distress
HEENT: Normocephalic and Atraumatic
Respiratory: Negative Wheezes or Rales
Cardiac: Regular Rhythm and S1/S2
GI: Soft and Nontender
Musculoskeletal: No Edema
Neuro: AO x 3
Hematologic / Lymphatic: No Lymphadenopathy
Psych: Calm
Data Reviewed
-
Total Time Spent with Patient (in minutes): 45
Labs: Labs Reviewed by me
[2023-12-27] MEDS: CRESTOR 20 MG PO (17:09)
[2023-12-27] MEDS: LOVENOX 40 MG SC (17:49)
[2023-12-27] MEDS: MELATONIN 5 MG PO (22:05)
--- NOTE | 2023-12-27 22:44 | PTCARENOTE ---
Rec'd pt. on 2L O2, pulse ox 86-88% (at rest in bed). Titrated up to 4L, sat increased to 92%. Bibasilar crackles auscultated, some WALTERS assessed when pt. walking to and fro bathroom. Ambulates with min assist and RW. Medicated for 5 out 10 right
knee pain, right leg elevated and ice packs provided. Pt. currently resting quietly.
[2023-12-28 03:49] VITALS: BP 121/62
[2023-12-28 03:58] VITALS: BMI 29.0
[2023-12-28 04:15] LABS: Hematocrit 29.8 % (37.0-47.0); Mean Corp Hgb Conc. 33.6 g/dL (33.0-37.0); Mean Corpuscular Hgb 32.1 pg (27.0-31.0); Mean Corpuscular Volume 95.5 fL (81.0-99.0); Mean Platelet Volume 9.9 fL (7.4-10.4); Platelet Count 247 10^3/uL (130-400); Red Blood Cell Count 3.12 10^6/uL (4.20-5.40); Red Cell Dist. Width 13.2 % (11.5-14.5); White Blood Cell Count 8.6 10^3/uL (4.8-10.8)
[2023-12-28] MEDS: ZOSYN 50 IV ×2 (04:16→10:10)
[2023-12-28 04:34] LABS: % Basophils 0.4 % (0-2); % Eosinophils 1.5 % (0-6); % Immature Granulocytes 1.5 % (0-0.5); % Lymphocytes 28.9 % (20.5-51.1); % Monocytes 6.7 % (1.7-9.3); Absolute Eosinophils 0.1 10^3/uL (0-0.7); Absolute Immature Granulocytes 0.1 10^3/uL (0-0.05); Absolute Lymphocytes 2.5 10^3/uL (1.2-3.4); Absolute Monocytes 0.6 10^3/uL (0.1-0.6); Absolute Neutrophils 5.2 10^3/uL (1.4-6.5); Nucleated Red Blood Cells % 0 %
[2023-12-28 04:45] LABS: ALT (SGPT) 39 U/L (0-35); AST (SGOT) 35 U/L (14-36); Albumin 3.2 g/dl (3.5-5.0); Alkaline Phosphatase 240 U/L (38-126); Blood Urea Nitrogen 13 mg/dl (7-17); Calcium 9.1 mg/dl (8.4-10.2); Carbon Dioxide 26 mmol/L (22-30); Chloride 104 mmol/L (98-107); Estimated Creatinine Clearance 93 ml/min; Glucose 104 mg/dl (70-99); HDL Cholesterol 27 mg/dl; LDL Cholesterol, Calculated 52 mg/dl; Potassium 3.4 mmol/L (3.5-5.1); Sodium 138 mmol/L (135-145); Total Bilirubin 1.2 mg/dl (0.2-1.3); Total Cholesterol 121 mg/dl (50-199); Total Protein 6.2 g/dl (6.3-8.2); Triglyceride 210 mg/dl (10-149); Very Low Density Lipoprotein 42 mg/dl (0-30); eGFR > 60.00
[2023-12-28 07:12] VITALS: BP 112/43
[2023-12-28] MEDS: ZESTRIL 2.5 MG PO ×2 (08:48→09:04)
[2023-12-28] MEDS: LOW STRENGTH ASPIRIN 81 MG PO (08:48)
[2023-12-28] MEDS: LASIX 40 MG PO (08:48)
[2023-12-28] MEDS: LOPRESSOR 12.5 MG PO (08:48)
[2023-12-28] MEDS: KCL 40 MEQ PO (09:03)
[2023-12-28] MEDS: ULTRAM 50 MG PO (09:03)
[2023-12-28] MEDS: PLAVIX 75 MG PO (09:03)
[2023-12-28] MEDS: WELLBUTRIN XL (24 hour extended release) 150 MG PO (09:04)
[2023-12-28] MEDS: MIRALAX PO (09:05)
[2023-12-28] MEDS: ZOLOFT 100 MG PO (09:06)
--- NOTE | 2023-12-28 11:20 | CM ---
Chart reviewed. Patient is independent of ADLS, lives with her in a 2 [address], 1 [facility], 0 DME. Patient ambulates with a rolling walker. Patient requiring home o2. I will reach out to [facility]. Plan is for the patient to return home with
Home O2 and [facility]. CM to follow
[2023-12-28 11:45] VITALS: BP 111/59
--- NOTE | 2023-12-28 12:00 | W.PN.PUL3 ---
Today's Communication / Plan
-
Supplemental oxygen
Transition to Augmentin
Chest x-ray today before discharge
Outpatient pulmonary follow-up
Sign off
Assessment
-
Acute hypoxemic respiratory failure
Chest x-ray 12/25/2023: Shows severe bilateral pneumonia versus pulmonary edema.
No leukocytosis/normal procalcitonin: Cannot rule out infectious etiology.
Increased proBNP: Suggest cardiogenic pulmonary edema 5110
Pulmonary capillary wedge pressures 25
Anemia: Possibly postoperative
Non-ST elevation myocardial infarction: LVEF 42% on ventriculogram
Status post PCI 90% mid LAD lesion stented successfully 12/24/2023
Conditions present prior admission:
Recent right total knee arthroplasty 12/2023
Postoperative anemia
Hypertension
Hyperlipidemia
Obesity
Assessment and plan:
-
Clinically improved.
Require supplemental oxygen. Currently at 3 L with pulse ox 96%.
With physical therapy up to 6 L to maintain pulse ox at 94%.
Will need supplemental oxygen at discharge temporarily.
-
Chest x-ray 12/26/2023: Stable bilateral infiltrates. No pleural effusion.
Unclear whether pneumonia is present: There is no leukocytosis, procalcitonin is normal.
Given lack of fevers or leukocytosis: Consider transition to oral antibiotics and complete total of 7 days.
Currently on Zosyn day 4, transition to Augmentin today and completed 7 to 8 days.
Follow cultures: So far negative.
Repeat chest x-ray PA and lateral today before discharge. Order has been placed.
-
Transitioned to oral diuretics.
Cardiology recommending outpatient follow-up.
Follow creat and electrolytes. Currently stable creatinine.
Replete potassium per primary team.
-
Incentive spirometry
Increase activity when able
Physical therapy as tolerated.
-
Will need radiographic follow-up after discharge to document resolution of infiltrates. Recommend pulmonary follow-up. Patient is agreeable. Information will be left in the chart.
-
Follow Hb, no indication for transfusion. Hemoglobin improving.
-
Family updated at bedside by Dr. Pope on 12/25/2023 and 12/26/2023, 12/27/2023, 12/28/2023.
-
Okay for discharge today. Discussed with patient and daughter.
Outpatient pulmonary follow-up.
Subjective Data
-
Date of Service:
Date of Service: December 28, 2023
Chief Complaint: Pulmonary Follow Up (Acute hypoxemic respiratory failure)
Subjective:
Patient feels better.
Less breathless
Denies hemoptysis or phlegm production
Remains on supplemental oxygen
Denies chills
Appetite improving
Was able to perform physical therapy.
Review of Systems
General: Fever (n)
Cardiopulmonary: Dyspnea (Improved) and Cough (Improved)
GI: Abdominal Pain (n)
Objective Data
Data Reviewed
Vital Signs / I&O / Oxygen:
Vital Signs
Temp Pulse Resp BP Pulse Ox
98.2 F 71 20 112/43 97
12/28/23 11:46 12/28/23 10:00 12/28/23 11:46 12/28/23 07:12 12/28/23 11:46
Intake and Output
12/27/23 12/28/23 12/29/23
06:59 06:59 06:59
Intake Total 200 / 200 1859
Output Total 1849
Balance -1650 / -1650 1859
SaO2 97
Nasal Cannula flow liters per 3
minute
Physical Exam
General: Respiratory Distress (n)
HEENT: Normocephalic
Cardiovascular: S1-S2
Respiratory: Wheeze (n), Crackles and Non-Labored Respirations
GI: Soft and Non Distended
Neurology: Awake, Oriented, AO x 3 and No Motor Deficits
Labs/Micro/Reports
Lab Data
12/28/23 04:05
12/28/23 04:05
Microbiology
12/25/23 16:31 Nasal Swab Influenza Types A & B (JANETT) - Final
Negative for Influenza A & B, NAAT
Negative results must be combined with clinical observations
and patient history.
Nucleic Acid Amplification test (NAAT)performed on the
[employer] platform.
12/24/23 15:01 Nose MRSA Screen - Final
No Methicillin Resistant Staphylococcus aureus isolated.
--- NOTE | 2023-12-28 12:51 | W.PN.HOSP.TC ---
Today's Communication/Plan
-
dc to home
Assessment / Plan
Assessment / Plan
Assessment:
Acute hypoxic respiratory failure
- initially on BiPAP - now transitioned to 3 L NC
- wean O2 as able; currently 3L
- Patient is in need of oxygen at 3 liters/minute via nasal cannula continuously due to pulse oximetry of 83% on room air at rest. Oxygen will help to improve hypoxemia. Patient is mobile within the home. diuretic therapy has been tried and is
ineffective in treating hypoxemia related symptoms. Oxygen is needed to improve symptoms.
- X-ray showing bilateral PNA; repeat some improvement
- cover with Augmentin, day 4/7. Pulm following.
N-STEMI
- s/p [facility] 12/23: single-vessel CAD with 90% mid LAD lesion which was stented.
- continue DAPT/BB/ZURI
- Echo in 3 months
- CBC cards follow up
Recent sepsis - presumably due to pneumonia
- X-ray showing bilateral PNA; repeat some improvement
- cover with Augmentin, day 4/7. Pulm following.
Acute heart failure with reduced EF exacerbation
- BNP 5110; consistent with likely acute HFrEF.
- s/p IV Lasix
- continue PO Lasix
- Echo: EF 50%, mild global hypokinesis. Abnormal (paradoxical) septal motion consistent with left bundle branch block. Mild to mod MR, Mod TR. Moderate TR. Estimated PASP 52 mmHg, assuming and estimated RA 3 mmHg.
- GDMT with ZURI, BB
Heat rash
- steroid cream added
Elevated LFTs likely from acute CHF
- monitor CMP
Recent right total knee arthroplasty
- ortho evaluated; well healing incision
- PT/OT - home VN
Postoperative anemia - required blood transfusion in [facility], likely postoperative acute blood loss anemia (received 2 units PRBCs). Follow Hb here. check anemia studies. heme test stools.
Essential hypertension - monitor BP
Obesity due to excess calories
Hypokalemia
- continue daily standing dose
DVT ppx: Lovenox
Full code
More than 30 minutes spent in discharge including
Final examination of the patient
Summarizing hospital stay
Instructions for continuing care to all relevant caregivers
Preparation of discharge records, prescriptions, and referral forms
Total time spent (in minutes): 41
Anticipated Discharge: Today
Subjective/Interval History
-
Date of Service: December 28, 2023
no sob or chest pain
Objective Data
-
Labs:
Laboratory Results
12/28/23
04:05
WBC 8.6
Hgb 10.0 L
Hct 29.8 L
Plt Count 247
Sodium 138
Potassium 3.4 L
Chloride 104
Carbon Dioxide 26
BUN 13
Creatinine 0.5 L
Glucose 104 H
Calcium 9.1
Total Bilirubin 1.2
AST 35
ALT 39 H
Alkaline Phosphatase 240 H
Vital Signs:
Vital Signs
Temp Pulse Resp BP Pulse Ox
98.2 F 71 20 112/43 97
12/28/23 11:46 12/28/23 10:00 12/28/23 11:46 12/28/23 07:12 12/28/23 11:46
I&O
12/27/23 12/28/23 12/29/23
06:59 06:59 06:59
Intake Total 200 / 200 1859
Output Total 1849
Balance -1649 / -1649
Physical Exam
-
General: No Apparent Distress
HEENT: Normocephalic and Atraumatic
Respiratory: Rales; Negative Wheezes
Cardiac: Regular Rhythm and S1/S2
GI: Soft and Nontender
Musculoskeletal: No Edema
Neuro: AO x 3
Psych: Calm
Data Reviewed
-
Total Time Spent with Patient (in minutes): 41
Labs: Labs Reviewed by me
--- NOTE | 2023-12-28 13:10 | W.DS.TRANS ---
DC Summary - It Project Lead
-
Discharge Instructions:
Discharge Diagnosis/Procedures NSTEMI s/p stent, Acute CHF, pneumonia, hypoxia
Diet 2 Gram Sodium,Restrict fluids to 48 oz,Low
Cholesterol
Activity As tolerated
Others Tests repeat Echo in 3 months - will be arranged with
ore roaster. Repeat Xray in 1 month - pulmonary
will arrange
Other Services VN
Instructions:
Stand-Alone Forms:
Changes to Home Medications: Yes
Discharge Medications:
DC Medications w/original date entered in [place]
bupropion HCl 150 mg tablet,12 hr sustained-release (Wellbutrin SR) 150 mg PO DAILY 12/25/23
sertraline 100 mg tablet 100 mg PO DAILY 12/25/23
hydroxyzine pamoate 25 mg capsule 25 mg DAILY PRN anxiety 12/26/23
loperamide 2 mg-simethicone 125 mg tablet 1 tab PO Q3H PRN diarrhea 12/26/23
amoxicillin 875 mg-potassium clavulanate 125 mg tablet 1 tab PO Q12 #8 tabs 12/28/23
aspirin 81 mg chewable tablet (Children's Aspirin) 81 mg PO DAILY #100 tabs 12/28/23
clopidogrel 75 mg tablet 75 mg PO DAILY #30 tabs 12/28/23
furosemide 40 mg tablet 40 mg PO DAILY #30 tabs 12/28/23
lisinopril 2.5 mg tablet 2.5 mg PO DAILY #30 tabs 12/28/23
metoprolol tartrate 25 mg tablet 12.5 mg (1/2 x 25 mg) PO BID #30 tabs 12/28/23
potassium chloride 20 mEq tablet,extended release(part/cryst) 40 meq (2 x 20 mEq) PO DAILY #60 tabs 12/28/23
rosuvastatin 20 mg tablet 20 mg PO QPM #30 tabs 12/28/23
Home Medication Changes
stop ARB/HCTZ
Pending Results: No
Total time spent discharging patient (in min): 42
[2023-12-28] MEDS: AUGMENTIN 875 MG/125 MG 1 TABLET PO (13:16)
[2023-12-28 15:30] VITALS: BP 122/63
[2023-12-28] MEDS: CRESTOR 20 MG PO (17:02)
--- NOTE | 2023-12-28 17:33 | PTCARENOTE ---
Pt sitting OOB in chair today and ambulating with walker, she does get WALTERS, but recovers well. She has been on O2 at 3L/min today and mayank well.
[2023-12-28] MEDS: LOVENOX SC (19:02)
== END 2023-12-28 19:38 | disposition home health service (06) | DRG 321 ==
LOC: IVU 12:06
PROVIDERS: Internal Medicine Cardiovascular Disease; ADMITTING PHYSICIAN Hospitalist; ATTENDING PHYSICIAN Internal Medicine; CONSULT PHYSICIAN Internal Medicine Cardiovascular Disease; CONSULT PHYSICIAN Internal Medicine Critical Care Medicine; FAMILY PHYSICIAN Family Medicine
PROC: 027034Z Dilation of Coronary Artery, One Artery with Drug-eluting Intraluminal Device, Percutaneous Approach (ICD-10-PCS; 2023-12-24)
PROC: B2151ZZ Fluoroscopy of Left Heart using Low Osmolar Contrast (ICD-10-PCS; 2023-12-24)
PROC: B2111ZZ Fluoroscopy of Multiple Coronary Arteries using Low Osmolar Contrast (ICD-10-PCS; 2023-12-24)
PROC: 4A023N8 Measurement of Cardiac Sampling and Pressure, Bilateral, Percutaneous Approach (ICD-10-PCS; 2023-12-24)
PROC: 5A09357 Assistance with Respiratory Ventilation, Less than 24 Consecutive Hours, Continuous Positive Airway Pressure (ICD-10-PCS; 2023-12-24)
DX: I21.4 Non-ST elevation (NSTEMI) myocardial infarction (principal); I50.21 Acute systolic (congestive) heart failure; J96.01 Acute respiratory failure with hypoxia; J18.9 Pneumonia, unspecified organism; D62 Acute posthemorrhagic anemia; E78.5 Hyperlipidemia, unspecified; M19.90 Unspecified osteoarthritis, unspecified site; F41.9 Anxiety disorder, unspecified; F32.A Depression, unspecified; I25.10 Atherosclerotic heart disease of native coronary artery without angina pectoris; E66.09 Other obesity due to excess calories; I11.0 Hypertensive heart disease with heart failure; L74.0 Miliaria rubra; E87.6 Hypokalemia; I27.20 Pulmonary hypertension, unspecified; I25.5 Ischemic cardiomyopathy; Z68.29 Body mass index [BMI] 29.0-29.9, adult; Z74.01 Bed confinement status; Z79.899 Other long term (current) drug therapy; Z79.82 Long term (current) use of aspirin; Z87.891 Personal history of nicotine dependence; Z96.651 Presence of right artificial knee joint
CPT/HCPCS: 93308; 71045; 71046; 80053; 80061; 82607; 82728; 82746; 83036; 83540; 83550; 83880; 84145; 85025; 85027; 85347; 87070; 87502; 87811; 93005; 93321; 93325; 93460; 93970; 94660; 97110; 97116; 97163; 97167; 97530; C1725; C1769; C1874; C1894; C9600; Q9967

== ENCOUNTER 2024-06-03 15:03 | Outpatient (RCR) | payer BC, SELFPAY | END 2024-06-03 23:59 | disposition home or self-care (01) | LOC: CRHB 15:03 | PROVIDERS: ATTENDING PHYSICIAN Internal Medicine Cardiovascular Disease | DX: I25.10 Atherosclerotic heart disease of native coronary artery without angina pectoris (principal); I25.2 Old myocardial infarction; Z95.5 Presence of coronary angioplasty implant and graft | CPT/HCPCS: 93797; 93798 ==

== ENCOUNTER 2024-07-01 14:00 | Outpatient (RCR) | payer BC, SELFPAY | END 2024-07-01 23:59 | disposition home or self-care (01) | LOC: CRHB 14:00 | PROVIDERS: ATTENDING PHYSICIAN Internal Medicine Cardiovascular Disease | DX: I25.10 Atherosclerotic heart disease of native coronary artery without angina pectoris (principal); Z95.4 Presence of other heart-valve replacement; I25.2 Old myocardial infarction | CPT/HCPCS: 93797; 93798 ==

== ENCOUNTER → 2025-01-15 09:07 | Outpatient (REF) | payer BC, SELFPAY | LOC: RCS 09:07 | PROVIDERS: ATTENDING PHYSICIAN Internal Medicine Cardiovascular Disease; FAMILY PHYSICIAN Family Medicine | DX: Z95.5 Presence of coronary angioplasty implant and graft (principal) | CPT/HCPCS: 93306 ==

== ENCOUNTER 2025-08-11 04:59 | Emergency (ER) | payer BC, SELFPAY ==
[2025-08-11 05:01] VITALS: BP 124/70
--- NOTE | 2025-08-11 05:13 | ED.GENMED ---
History of Present Illness
<Chelo Andersen PA-C - Last Filed: 08/11/25 07:26>
General
Chief Complaint: Head Injury
Source: patient
Exam Limitations: none
Time Seen by Provider: 08/11/25 05:06
Nursing documentation reviewed up to this point in time: agreed with
History of Present Illness
History of Present Illness:
69-year-old female with past medical history of coronary artery disease on aspirin and Plavix, distant history of rectal cancer, hypertension, hyperlipidemia, presents to the ER today with concerns of headache following a fall. She reports that she
woke up this morning with a strong urge to defecate and she ran to the bathroom and before she could reach the bathroom, she felt lightheaded with standing and fell and hit her head. She quickly woke up and woke up to her talking to her and
trying to help her up. Currently, aside from a headache, she denies any numbness or tingling, visual changes, neck pain. She denies any nausea or vomiting. She denies any chest pain or shortness of breath. Of note, she just lost a lot of weight
due to to GLP-1 inhibitor yet has been on the same blood pressure regimen.
Review of Systems
<Chelo Andersen PA-C - Last Filed: 08/11/25 07:26>
Review of Systems
All Other Systems: ROS reviewed and negative except as documented in HPI and ROS
Phy Exam
<Chelo Andersen PA-C - Last Filed: 08/11/25 07:26>
Physical Exam
Physical Exam:
General: Patient is well appearing and in no acute distress; non-toxic
Skin: Warm and dry, no rashes or lesions
Head: TMJ joints intact bilaterally. Tenderness palpation about the right orbit. No tenderness to palpation along the zygomatic process, temporal bones, mandible, maxilla.
Eyes: Sclera non-icteric. EOMs intact. Right sided periorbital swelling and ecchymosis noted, no entrapment.
Cardiac: Regular rate and rhythm, no murmurs
Peripheral Vascular: No lower extremity swelling or edema
Pulm: Normal respiratory effort, no wheezes, rales, or rhonchi
Abdomen: No abdominal tenderness to palpation
Musculoskeletal: No midline cervical spinal tenderness. No tenderness to palpation in the extremities. Full range of motion.
Neuro: CN II-XII intact, no focal neurologic deficits. 5 out of 5 strength bilateral upper and lower extremities.
Psychiatric: Appropriate mood and affect.
Course
<Chelo Andersen PA-C - Last Filed: 08/11/25 07:26>
Orders/Labs/Results
Orders:
Orders
08/11/25 05:23
CT Head W/o Iv Contrast Urgent
Comment:
Reason For Exam: fall, headache
08/11/25 05:26
CT Cervical Spine W/o Iv Contr Urgent
Reason For Exam: head trauma
CT Facial Bones W/o Iv Contras Urgent
Comment:
Reason For Exam: right periorbital swelling
08/11/25 05:31
Electrocardiogram (*1) Urgent
Reason for Study: Fatigue / Weakness
EKG- Treatment ONCE
Tetanus/Diphth/Acelpertussis [Adacel] 0.5 ml IM .ONCE ONE
08/11/25 05:36
Lidocaine/Epinephrine/Tetracai [Let Topical Anesthetic Gel] 3 ml .ROUTE .STK-MED ONE
08/11/25 05:37
Lidocaine/Epinephrine/Tetracai [Let Topical Anesthetic Gel] 3 ml TOPICAL NOW STA
08/11/25 05:52
Orthostatic VS- Treatment ONCE
08/11/25 05:57
Complete Blood Count/With Diff Urgent
Comprehensive Metabolic Panel Urgent
08/11/25 06:21
Acetaminophen [Tylenol] 1,000 mg PO NOW STA
08/11/25 06:34
Ondansetron Injectable [Zofran] 4 mg .ROUTE .STK-MED ONE
08/11/25 06:37
Ondansetron Injectable [Zofran] 4 mg IV NOW STA
08/11/25 07:05
PTT Urgent
Prothrombin Time Urgent
08/11/25 07:13
CeFAZolin 2 grams IV Push NOW CeFAZolin 2 GRAM [Ancef] 2 grams in 10 ml IV NOW
Abnormal Lab Results
08/11/25
05:57
RBC 3.53 L 10^6/uL
(4.20-5.40)
Hgb 11.8 L g/dL
(12.0-16.0)
Hct 32.6 L %
(37.0-47.0)
MCH 33.4 H pg
(27.0-31.0)
Sodium 133 L mmol/L
(135-145)
Potassium 3.2 L mmol/L
(3.5-5.1)
Carbon Dioxide 18 L mmol/L
(22-30)
AST 43 H U/L
(14-36)
08/11/25 05:57
08/11/25 05:57
Vital Signs
Initial and Last Documented VS:
Initial Vital Signs
Temp Pulse Resp BP Pulse Ox
97.4 F 104 24 124/70 97
08/11/25 05:01 08/11/25 05:01 08/11/25 05:01 08/11/25 05:01 08/11/25 05:01
Last Documented Vital Signs
Temp Pulse Resp BP Pulse Ox
97.4 F 91 23 112/66 96
08/11/25 05:01 08/11/25 07:00 08/11/25 07:00 08/11/25 06:04 08/11/25 06:04
<Gilda Tay DO - Last Filed: 08/11/25 07:08>
Orders/Labs/Results
Orders:
Orders
08/11/25 05:23
CT Head W/o Iv Contrast Urgent
Comment:
Reason For Exam: fall, headache
08/11/25 05:26
CT Cervical Spine W/o Iv Contr Urgent
Reason For Exam: head trauma
CT Facial Bones W/o Iv Contras Urgent
Comment:
Reason For Exam: right periorbital swelling
08/11/25 05:31
Electrocardiogram (*1) Urgent
Reason for Study: Fatigue / Weakness
EKG- Treatment ONCE
Tetanus/Diphth/Acelpertussis [Adacel] 0.5 ml IM .ONCE ONE
08/11/25 05:36
Lidocaine/Epinephrine/Tetracai [Let Topical Anesthetic Gel] 3 ml .ROUTE .STK-MED ONE
08/11/25 05:37
Lidocaine/Epinephrine/Tetracai [Let Topical Anesthetic Gel] 3 ml TOPICAL NOW STA
08/11/25 05:52
Orthostatic VS- Treatment ONCE
08/11/25 05:57
Complete Blood Count/With Diff Urgent
Comprehensive Metabolic Panel Urgent
08/11/25 06:21
Acetaminophen [Tylenol] 1,000 mg PO NOW STA
08/11/25 06:34
Ondansetron Injectable [Zofran] 4 mg .ROUTE .STK-MED ONE
08/11/25 06:37
Ondansetron Injectable [Zofran] 4 mg IV NOW STA
08/11/25 07:05
PTT Urgent
Prothrombin Time Urgent
08/11/25 07:13
CeFAZolin 2 grams IV Push NOW CeFAZolin 2 GRAM [Ancef] 2 grams in 10 ml IV NOW
Abnormal Lab Results
08/11/25
05:57
RBC 3.53 L 10^6/uL
(4.20-5.40)
Hgb 11.8 L g/dL
(12.0-16.0)
Hct 32.6 L %
(37.0-47.0)
MCH 33.4 H pg
(27.0-31.0)
Sodium 133 L mmol/L
(135-145)
Potassium 3.2 L mmol/L
(3.5-5.1)
Carbon Dioxide 18 L mmol/L
(22-30)
AST 43 H U/L
(14-36)
08/11/25 05:57
08/11/25 05:57
Vital Signs
Initial and Last Documented VS:
Initial Vital Signs
Temp Pulse Resp BP Pulse Ox
97.4 F 104 24 124/70 97
08/11/25 05:01 08/11/25 05:01 08/11/25 05:01 08/11/25 05:01 08/11/25 05:01
Last Documented Vital Signs
Temp Pulse Resp BP Pulse Ox
97.4 F 91 23 112/66 96
08/11/25 05:01 08/11/25 07:00 08/11/25 07:00 08/11/25 06:04 08/11/25 06:04
Procedures
[place];Chelo Andersen PA-C - Last Filed: 08/11/25 07:26>
Laceration Closure
right temporal laceration:
Status of Wound: clean
Size of Wound in cm: 3
Description of Wound Edges: sharp
Preparation: cleaned with saline and cleaned with Betadine
Anesthesia: 1% Lidocaine with epi
Revision/Debridement: routine- no revision
Wound exploration: explored to base- no FB
Type of Closure: single layer closure
Skin Closure Material: 4-0 prolene
Number of sutures: 6
right lower lip:
Size of Wound in cm: 1
Description of Wound Edges: ragged
Preparation: cleaned with saline
Anesthesia: 1% Lidocaine with epi
Revision/Debridement: routine- no revision
Wound exploration: explored to base- no FB
Skin Closure Material: 5-0 chromic gut
Number of sutures: 3
<Chelo Andersen PA-C - Last Filed: 08/11/25 07:26>
MDM/Problems Addressed
Differential Diagnosis Includes:
The Differential Diagnosis includes, in no particular order and is not limited to:
- Orthostatic hypotension
- Traumatic brain injury
- Hypertension-related headache
- Benign positional vertigo
- Postural orthostatic tachycardia syndrome (POTS)
- Hyperkalemia-induced dizziness (given diuretic usage)
- Side effect of clopidogrel
- Benign paroxysmal positional vertigo (BPPV)
- Intracranial hemorrhage
- Dehydration
MDM/Problems Addressed:
The patient was seen in the emergency department following a fall after waking and rushing to the bathroom, resulting in a laceration and head pain. Given the mechanism of injury and symptoms, a CT scan was deemed necessary. Her history of dizziness
with rapid position changes and medication list were considered in planning her care. Treatment was directed toward assessing for potential serious injury and addressing the laceration. Tetanus will be updated.
CT scan shows large acute subdural hematoma overlying the lateral convexity of the right frontal and parietal lobes causing moderate mass effect. Facial bone shows acute nondisplaced fractures of the anterior wall of the right maxillary sinus and
right orbital floor with moderate lying hemorrhage in the maxillary sinus. Will cover with Ancef. Discussed case with the attending. Patient will require transfer to facility with neurosurgery organic preparation analyst preferably [facility]. Cervical spine CT
shows no acute fracture or dislocation but multiple areas of degenerative disc disease and canal stenosis. Pain treated with Tylenol. Patient was given Zofran for nausea. Neurologic exam remains nonfocal. Neurosurgery recommends ALS transfer.
Will arrange for transport. Day team made aware of patient's case pending transfer. ETA for transfer 8 AM.
Chronic conditions affecting care:
CAD, htn, hlp, anxiety, depression
<Chelo Andersen PA-C - Last Filed: 08/11/25 07:26>
*Pulse Oximetry
SaO2: 97
Oxygen Mode of Delivery: Room air
Patient hypoxic: no
*Critical Care Note
Total Time (30-74mins, 75-104mins- exclusive of procedures): Not Applicable
Data Reviewed
Review of Other/Old Records Reveals: Records (reviewed discharge summary from 12/28/23)
Source: patient and records
ED Attending Note
<Chelo Andersen PA-C - Last Filed: 08/11/25 07:26>
-
Portions of this chart may have been created with voice recognition software.� Occasional wrong word or��sound alike� substitutions may have occurred due to the inherent limitations of voice recognition software.
<Gilda Tay DO - Last Filed: 08/11/25 07:08>
ED Attending Note
Patient seen and examined by attending physician: Yes
I performed a history and physical exam of patient and discussed management with resident, I reviewed resident's note and agree with documented findings and plan of care.: Yes
ED Attending Note:
This is a 69-year-old woman who has history of CAD, hypertension, hyperlipidemia, heart failure with reduced EF reports EF approximately 40%. Maintained on goal-directed medical therapy including Entresto, metoprolol, furosemide, Jardiance. She
has also been taking tirzepatide and reports 40 pound weight loss. She has remote history of rectal cancer surgical excision 2017. No history of recurrence. Over the past several weeks she admits to brief lightheadedness with standing. Tonight
she got up out of bed quickly as she felt the urge to have a bowel movement. This is not unusual for her status post rectal surgery. As she was quickly walking to the bathroom she states she must of passed out, fell and struck her right forehead
on the ground. Patient states she had no prodromal dizziness nor lightheadedness.
She presents with laceration, soft tissue contusion/hematoma to her right superior orbit and also notes moderate generalized headache frontal to right parietal area. She denies neck pain. No dizziness nor lightheadedness. No weakness. She is
chronically maintained on Plavix as well as low-dose aspirin.
69-year-old woman appears her stated age. Awake and alert, oriented x 3. GCS of 15.
HEENT: Large hematoma right superior orbit with full-thickness laceration lateral aspect of the right superior orbit/lateral brow. No active bleeding. Moderate local tenderness to palpation. There is small area of ecchymosis and soft tissue
swelling right maxilla/right upper lip. No epistaxis. TMs are clear bilaterally.
Neck is supple, no midline tenderness.
Neuro: Awake alert and oriented x 3. GCS of 15. No focal neurodeficits.
Concern for closed head injury, orbital fracture, less likely C-spine fracture.
Syncopal event concerning for orthostasis versus arrhythmia.
Patient has lost 40 pounds successfully with tirzepatide and I suspect he may now be suffering with low blood pressure, overcorrected hypertension. BP meds may need to be titrated down.
Will check CTs, labs, EKG. Will require suture repair.
CT of the head shows large right-sided subdural hematoma causing moderate mass effect and mild midline shift. 4.2 cm acute scalp soft tissue hematoma anterior to the right frontal bone.
Patient remains awake and alert, GCS of 15.
Will plan to transfer to [facility], trauma service. Case discussed with trauma attending. Will plan to transfer level 0 [facility] trauma bay.
Discharge Plan
Departure
Patient Disposition: Acute Care Hospital
Date of Disposition: 08/11/25
Time of Disposition: 07:08
Admit to doctor: SUKH Tripp
Patient with high blood pressure during this ER visit?: Yes
Condition: Good
Discharge Problem:
Traumatic subdural hematoma
Prescriptions:
No Action
bupropion HCl [Wellbutrin SR] 150 mg Tablet Sustained-Release 12 Hr
150 mg PO DAILY
sertraline 100 mg Tablet
100 mg PO DAILY
loperamide-simethicone 2-125 mg Tablet
1 tab PO Q3H PRN (Reason: diarrhea)
hydroxyzine pamoate 25 mg Capsule
25 mg DAILY PRN (Reason: anxiety)
clopidogrel 75 mg Tablet
75 mg PO DAILY Qty: 30 0RF
aspirin [Children's Aspirin] 81 mg Tablet,Chewable
81 mg PO DAILY Qty: 100 0RF
lisinopril 2.5 mg Tablet
2.5 mg PO DAILY Qty: 30 0RF
amoxicillin-pot clavulanate 875-125 mg Tablet
1 tab PO Q12 Qty: 8 0RF
rosuvastatin 20 mg Tablet
20 mg PO QPM Qty: 30 0RF
metoprolol tartrate 25 mg Tablet
12.5 mg PO BID Qty: 30 0RF
furosemide 40 mg Tablet
40 mg PO DAILY Qty: 30 0RF
potassium chloride 20 mEq Tablet,Er Particles/Crystals
40 meq PO DAILY Qty: 60 0RF
Referrals:
Marissa Isaac DO [Family Provider, Family Practice]
Hospital Transfer
Other hospital: [facility]
I certify that the patient requires transfer: Yes
Discussed case with accepting physician: SUKH neurosurgery
Reason for transfer: higher level of care
Interventions
Interventions:
*Risk Screen - Suicide Last Done: 08/11/25 05:01
*General Assessment Last Done: 08/11/25 06:36
*Neglect/Abuse Screening Last Done: 08/11/25 05:01
*ED COVID-19 Vaccine History Last Done: 08/11/25 06:36
*ED Influenza Vaccine History Last Done: 08/11/25 06:36
[facility] Fall Risk Assessment Tool Last Done: 08/11/25 04:59
ED- Neurological Assessment Last Done: 08/11/25 06:05
ED-Skin Assessment Last Done: 08/11/25 06:05
Discharge Date and Time
Print Language: VINCENTIAN
[2025-08-11] MEDS: LET TOPICAL ANESTHETIC GEL 3 ML TOPICAL (05:37)
[2025-08-11] MEDS: ADACEL 0.5 ML IM (05:38)
[2025-08-11 06:04] VITALS: BP 112/66
[2025-08-11 06:25] LABS: Hematocrit 32.6 % (37.0-47.0); Hemoglobin 11.8 g/dL (12.0-16.0); Mean Corp Hgb Conc. 36.2 g/dL (33.0-37.0); Mean Corpuscular Volume 92.4 fL (81.0-99.0); Nucleated Red Blood Cells % 0 %; Platelet Count 163 10^3/uL (130-400); Red Cell Dist. Width 13.1 % (11.5-14.5)
[2025-08-11 06:33] VITALS: BMI 23.6
[2025-08-11 06:34] LABS: ALT (SGPT) 29 U/L (0-35); AST (SGOT) 43 U/L (14-36); Albumin 4.6 g/dl (3.5-5.0); Alkaline Phosphatase 86 U/L (38-126); Blood Urea Nitrogen 13 mg/dl (7-17); Calcium 9.1 mg/dl (8.4-10.2); Carbon Dioxide 18 mmol/L (22-30); Chloride 99 mmol/L (98-107); Estimated Creatinine Clearance 80 ml/min; Glucose 90 mg/dl (70-99); Potassium 3.2 mmol/L (3.5-5.1); Sodium 133 mmol/L (135-145); Total Protein 7.3 g/dl (6.3-8.2); eGFR > 60.00
[2025-08-11] MEDS: TYLENOL 1000 MG PO (06:37)
[2025-08-11] MEDS: ZOFRAN 4 MG IV (06:37)
[2025-08-11 07:07] VITALS: BP 107/53
[2025-08-11] MEDS: ANCEF 10 IV (07:19)
[2025-08-11 07:32] LABS: INR 1.15; PT 14.9 Sec (11.4-14.6)
[2025-08-11 07:33] LABS: APTT 31.2 Sec (23.4-35.0)
[2025-08-11 08:00] VITALS: BP 113/60
== END 2025-08-11 09:04 | disposition short-term general hospital (02) ==
LOC: EMR 04:59
PROVIDERS: Physician Assistant; EMERGENCY PHYSICIAN Emergency Medicine; FAMILY PHYSICIAN Family Medicine
DX: S06.5XAA Traumatic subdural hemorrhage with loss of consciousness status unknown, initial encounter (principal); S02.40CA Maxillary fracture, right side, initial encounter for closed fracture; S02.31XA Fracture of orbital floor, right side, initial encounter for closed fracture; S02.2XXA Fracture of nasal bones, initial encounter for closed fracture; S01.81XA Laceration without foreign body of other part of head, initial encounter; S01.511A Laceration without foreign body of lip, initial encounter; W18.30XA Fall on same level, unspecified, initial encounter; Y92.009 Unspecified place in unspecified non-institutional (private) residence as the place of occurrence of the external cause; I25.10 Atherosclerotic heart disease of native coronary artery without angina pectoris; I11.0 Hypertensive heart disease with heart failure; I50.20 Unspecified systolic (congestive) heart failure; E78.5 Hyperlipidemia, unspecified; F41.9 Anxiety disorder, unspecified; F32.A Depression, unspecified; M50.30 Other cervical disc degeneration, unspecified cervical region; M48.02 Spinal stenosis, cervical region; Z23 Encounter for immunization; Z79.01 Long term (current) use of anticoagulants; Z79.02 Long term (current) use of antithrombotics/antiplatelets; Z79.82 Long term (current) use of aspirin; Z85.048 Personal history of other malignant neoplasm of rectum, rectosigmoid junction, and anus
CPT/HCPCS: 99285; 96374; 96375; 12013; 90471; 70450; 70486; 72125; 80053; 85025; 85610; 85730; 90715; 93005

== ENCOUNTER 2025-08-21 10:32 | Emergency (ER) | payer BC, SELFPAY ==
[2025-08-21 10:39] VITALS: BP 145/75
[2025-08-21 10:49] VITALS: BP 141/66
--- NOTE | 2025-08-21 11:04 | CON.NEURO4 ---
Addendum entered and electronically signed by Cory Hurley MD 08/21/25 12:17:
Studies reviewed.
I have personally examined the patient. I reviewed and agree with the MAMMAL CONTROL AGENT's Note.
My addenda:
Awake, alert, interactive. No acute distress.
Speech intact.
Follows 2-step requests w/o difficulty. No tremor.
Extra-ocular movements grossly intact.
Facial movements full and symmetric. Hearing intact to normal conversational volume.
Normal UE movements bilaterally.
Neck: full ROM.
Chest: no dyspnea
Heart: no JVD
Ext: (-) Clubbing, (-) Cyanosis, (-) Edema
IMPRESSIONS/RECOMMENDATIONS:
Abrupt onset of aphasia
This might be due to either TIA or relative hypotension based on restart of medications following recent right sided subdural hematoma evacuation.
Patient should immediately restart aspirin which was discontinued at the time of subdural discovery and surgery
Patient should contact neurosurgery to determine when restart of clopidogrel may be initiated
Patient should also contact cardiology to determine when would be the latest timeframe for her to restart clopidogrel and to discontinue antihypertensive medications until reviewed with cardiology
Continue rosuvastatin and Evolocumab
Patient was instructed to return to this hospital's emergency department if aphasia recurs
D/W patient / family
All questions answered.
Will continue to follow as needed.
Original Note:
Documented by User: Magi Nayak NP 08/21/25 12:04
Consultation - Neurology 4
-
CONSULTING PHYSICIAN: Cory Hurley MD
REFERRING PHYSICIAN: ER/Dr. Jeronimo
DICTATED BY: EMERITA Dhaliwal
DATE/TIME OF REQUEST: 08/21/25
DATE/TIME OF CONSULTATION: 08/21/25
Reason for Consultation: Stroke Alert
History of Present Illness:
This is a 69-year-old female who has presented to the hospital with report of dysarthria and aphasia. Patient was evaluated at [facility] ER on 08/11/25 with report of a fall with head trauma. She woke up in the morning with a strong urge to defecate and
upon running into the bathroom she felt lightheaded and fell to the ground striking her head. She had a resulting headache, prompting her to bring her to the ER for evaluation. Patient was found to have a large subdural hematoma with midline
shift and was transferred to [facility] for neurosurgical intervention.
From hospital discharge summary at [facility] on 08/17/25:
'Hospital Course
The patient Luana Bullock was admitted on 08/11/2025 for Acute subdural hematoma (CMS-HCC).
�
Luana Bullock is a 69yo F with PMHx HTN, HLD, HFrEF, NSTEMI, PCI on DAPT, colon cancer s/p bowel resection, and SELINA who presented to an OSH after a ground level fall. OSH head CT demonstrated a right SDH 9.8x1.7x6.6mm with 3.7mm of midline shift.
Other injuries included a right eye laceration s/p suture repair and a right maxillary sinus fracture. She was transferred to [facility] for further evaluation. Repeat CT head showed interval increased in size to 10.9mm. She was admitted to the Neuro ICU
and taken to operating room later that day for a right craniotomy for SDH evacuation. Post-operatively, she returned to the Neuro ICU. 08/15/25 she was transferred to the floor and worked with PTOT. PTOT recommended discharge home with [facility].
�
On 08/17/2025, after working with physical therapy, the patient was deemed a suitable candidate for discharge to home with [facility]. At the time of discharge, the patient was tolerating a regular diet, had good pain control, and was ambulating without
difficulty. The patient and their family were agreeable to the discharge plan. They understood the follow up plan, discharge instructions and wound care.'
Patient and her spouse at bedside report that she has been home for four days and had been doing very well. This morning she notes that she took all of her cardiac and diabetes medication again for the first time since coming home. About an hour
later around 0930 her reports that her speech was suddenly slurred and she was unable to get her words out. On arrival in the ER about an hour later, her symptoms have resolved. CT head and CTA head/neck were obtained on arrival and are
negative for any acute abnormalities. NIHSS is currently 0. She denies any headache, dizziness, vision changes, swallowing difficulty, numbness, and weakness. She is not a candidate for TNK/IAT due to recent SDH requiring craniotomy and no LVO for
IAT. Per Cardiology, she is supposed to be on DAPT with aspirin 81mg and plavix 75mg daily due to a cardiac stent. DAPT has been held since onset of her SDH. The patient and her spouse report that discharge instructions were unclear and they do not
know when she is supposed to resume either one. She was scheduled to have a repeat CT head on 08/30/25.
�
Past Medical History: SDH, HTN, HLD, HRrEF, NSTEMI, colon cancer, SELINA, depression, anxiety, osteoarthritis
Surgical History: Crani for SDH clot evac 08/11/25, LAD PCI, bowel resection, R TKR
Family History: Mother- stroke, dementia. Daughter- seizures.
Social History: Former smoker.
Allergies: Latex, oxycodone.
Home Medications: See below.
Review of Symptoms:
Patient denies any fever, headache, chest pain, shortness of breath, GI or symptoms.
�Per the HPI.�All systems are reviewed negative except above.
Physical Exam:
The patient is afebrile, abdomen is nondistended, breathing is unlabored, skin is warm and dry, no edema.
NIH Stroke Scale:
I performed the NIH stroke scale on the patient on 08/21/25 at 1100. The patient scored 0 points on the NIH stroke scale assessment, which were assigned as follows: See below.
Neurologic Examination:
The patient is awake, alert and oriented x 3. She is able to follow commands and answer questions appropriately. There is no aphasia or dysarthria. On cranial nerve assessment, pupils are 3 mm bilateral, round and reactive to light and
accommodation. Visual ruiz are full. Extraocular movements are intact. Facial sensations are intact and bilaterally symmetrical, there is no facial asymmetry. Hearing is intact bilaterally to normal conversation volume. Tongue palate and uvula are
midline. Sternocleidomastoid strengths are full bilaterally. Motor strengths are 5/5 bilateral upper and lower extremities on medical research [place] scale. There is no drift or involuntary movement noted. Deep tendon reflexes are 2+ bilateral
upper and lower extremities and Babinski is absent bilaterally. There was no extinction noted on double simultaneous stimulation. Coordination is intact by finger to nose bilaterally.
Lab Results: See below.
Neuro Imaging:
1. CT Head 08/21/25: Patient is status post craniotomy. There is air and residual blood in the right subdural space likely related to recent surgery. ASPECT score: 10.
2. CTA head/neck 08/21/25: No evidence of large vessel occlusion, or arterial dissection. 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 The right A2 segment is perfused by collaterals from the anterior
communicating artery. Changes of recent prior right parietal craniotomy.
Differentials for the patient's presentation include:
1. Transient dysarthria and aphasia; CT head imaging is negative for any expansion of her previous SDH and CTA head/neck is negative for a LVO. Etiology of symptoms may be transient hypotension or toxic metabolic encephalopathy in the setting of
resuming all home cardiac and diabetes medications this morning, vs possibly a transient ischemic attack or simple partial seizure.
2. SDH s/p crani for clot evac 08/11/25.
3. LAD PCI, DAPT currently on hold.
Patient has the following risk factors for their symptoms: Recent SDH, cardiac stent holding DAPT
IV Tenecteplase/IAT candidacy: Not a candidate due to recent SDH s/p crani for clot evac and no LVO for IAT.
Recommendations:
-Would resume home aspirin 81mg, continue to hold clopidogrel. Patient to call neurosurgery today as well to confirm resumption of DAPT plans.
-Patient to notify Cardiology of recent changes.
-Check orthostatic vital signs.
-Checking blood work for metabolic abnormalities.
-LDL goal <70. Lipid panel is pending. Continue home Repatha and rosuvastatin 20mg daily.
-Goal normoglycemia.
-Provide patient with a stroke education packet.
Discussed patient care with: Dr. Hurley, the patient, patient's spouse
Vital Signs and Labs
-
Vital Signs and Labs:
Vital Signs
Temp Pulse Resp BP Pulse Ox
98.1 F 94 16 145/75 100
08/21/25 10:39 08/21/25 10:39 08/21/25 10:39 08/21/25 10:39 08/21/25 10:39
Lab Results
08/21/25 10:59
Medications
-
Home Medications
�Medication �Instructions �Recorded
bupropion HCl 150 mg tablet,12 hr 150 mg PO DAILY 12/25/23
sustained-release (Wellbutrin SR)
sertraline 100 mg tablet 100 mg PO DAILY 12/25/23
hydroxyzine pamoate 25 mg capsule 25 mg DAILY PRN anxiety 12/26/23
loperamide 2 mg-simethicone 125 mg 1 tab PO Q3H PRN diarrhea 12/26/23
tablet
amoxicillin 875 mg-potassium 1 tab PO Q12 #8 tabs 12/28/23
clavulanate 125 mg tablet
aspirin 81 mg chewable tablet 81 mg PO DAILY #100 tabs 12/28/23
(Children's Aspirin)
clopidogrel 75 mg tablet 75 mg PO DAILY #30 tabs 12/28/23
furosemide 40 mg tablet 40 mg PO DAILY #30 tabs 12/28/23
lisinopril 2.5 mg tablet 2.5 mg PO DAILY #30 tabs 12/28/23
metoprolol tartrate 25 mg tablet 12.5 mg (1/2 x 25 mg) PO BID #30 12/28/23
tabs
potassium chloride 20 mEq 40 meq (2 x 20 mEq) PO DAILY #60 12/28/23
tablet,extended release(part/cryst) tabs
rosuvastatin 20 mg tablet 20 mg PO QPM #30 tabs 12/28/23
NIH Stroke Score
Subsequent NIH Scale
Date of Subsequent NIH Scale: 08/21/25
Time of Subsequent NIH Scale: 11:00
NIH Stroke Score
Level of Consciousness: 0 - Alert
LOC Questions: 0-Answers both correctly
LOC Commands: 0-Performs both correctly
Best Horizontal Gaze: 0-Normal
Visual Ruiz: 0=Normal, no visual loss
Facial Palsy: 0=Normal, symmetrical
Motor - Right Arm: 0=No drift 10 seconds
Motor - Left Arm: 0=No drift 10 seconds
Motor - Right Le-No drift 5 seconds
Motor - Left Le-No drift 5 seconds
Limb Ataxia: 0-Absent
Sensation: 0-Normal
Best Language: 0-No aphasia
Dysarthria: 0-Normal
Extinction and Inattention: 0-No abnormality
NIH Total Score:: 0
Modified [place] (mRS) Score
Modified [place] Scale (mRS): No symptoms
Score: 0
Alteplase Contraindication
Inclusion and Exclusion criteria reviewed: Yes
Reasons for NON-Tx with Thrombolytics ABSOLUTE Exclusions: Intracranial sx, spinal sx, or serious head trauma within 3 months
IAT Contraindications: Imaging doesn't show large vessel occlusion as cause of stroke

Documented by User: Cory Hurley MD 08/21/25 12:14
NIH Stroke Score
NIH Stroke Score
NIH Total Score:: 0
Modified [place] (mRS) Score
Score: 0
[2025-08-21 11:08] LABS: Hematocrit 33.7 % (37.0-47.0); Hemoglobin 11.5 g/dL (12.0-16.0); Mean Corp Hgb Conc. 34.1 g/dL (33.0-37.0); Mean Corpuscular Volume 93.1 fL (81.0-99.0); Nucleated Red Blood Cells % 0 %; Platelet Count 231 10^3/uL (130-400); Red Cell Dist. Width 14.7 % (11.5-14.5)
[2025-08-21 11:21] VITALS: BP 140/65
[2025-08-21 11:21] LABS: INR 1.07; PT 13.7 Sec (11.4-14.6)
[2025-08-21 11:22] LABS: APTT 31.6 Sec (23.4-35.0)
[2025-08-21 11:23] LABS: ALT (SGPT) 26 U/L (0-35); AST (SGOT) 32 U/L (14-36); Albumin 4.5 g/dl (3.5-5.0); Alkaline Phosphatase 180 U/L (38-126); Calcium 9.1 mg/dl (8.4-10.2); Carbon Dioxide 20 mmol/L (22-30); Chloride 109 mmol/L (98-107); Glucose 101 mg/dl (70-99); Potassium 3.7 mmol/L (3.5-5.1); Sodium 139 mmol/L (135-145); Total Protein 7.5 g/dl (6.3-8.2); eGFR > 60.00
--- NOTE | 2025-08-21 11:29 | ED.CVA ---
History of Present Illness
General
Chief Complaint: CVA/TIA Symptoms
Time Seen by Provider: 08/21/25 10:48
Onset of Stroke Symptoms
Onset of symptoms known: Yes
Date of onset of symptoms: 08/21/25
Time of onset of symptoms: 09:30
History of Present Illness
History of Present Illness:
69-year-old female with history of hypertension presenting to the emergency department for strokelike symptoms. Patient recently had a fall, was seen in the hospital after 1 on 08/21, suffered a subdural hematoma. Notes that she did have surgery
at [place] where she was transferred to. She was released from the hospital 08/17. She has been having home nursing come to the house. They came to the house and during that time, started to have expressive aphasia with some weakness of the right
side of her face. She feels that symptoms have improved since arrival to the hospital with onset of symptoms around 9:30 AM. Denies focal weakness or sensory deficits to her extremities. Denies chest pain or difficulty breathing. Denies visual
changes. Denies additional acute medical complaints. Patient does note that given her recent intracranial trauma, had been stopped on her blood pressure medication. She restarted her medications today and was not sure if that it contributed to
her symptoms.
Phy Exam
Physical Exam
Physical Exam:
General: Well-appearing, no clinical signs of dehydration, nontoxic and in no acute distress
Head: Healing ecchymosis to the right side of her face with healed incision over her right eyebrow
HEENT: protecting airway, mild right facial droop with difficulty raising eyebrow
Neck: appears supple
CV: Normal heart rate, regular rhythm
Resp: No accessory muscle use, no increased work of breathing, lungs clear to auscultation bilaterally
Abd: No distention
Extremities: No deformities, no swelling
Neuro: alert, no focal neurologic deficit. Mild expressive aphasia
: deferred
Rectal: deferred
Psych: Normal affect
Skin: Intact
Scores
NIH Stroke Score
Level of Consciousness: 0 - Alert
LOC Questions: 0-Answers both correctly
LOC Commands: 0-Performs both correctly
Best Horizontal Gaze: 0-Normal
Visual [place]: 0=Normal, no visual loss
Facial Palsy: 1=Minor paralysis
Motor - Right Arm: 0=No drift 10 seconds
Motor - Left Arm: 0=No drift 10 seconds
Motor - Right Le-No drift 5 seconds
Motor - Left Le-No drift 5 seconds
Limb Ataxia: 0-Absent
Sensation: 0-Normal
Best Language: 1-Mild aphasia
Dysarthria: 0-Normal
Extinction and Inattention: 0-No abnormality
NIH Total Score:: 2
Course
Orders/Labs/Results
Orders:
Orders
08/21/25 10:53
Electrocardiogram (*1) Stat
Reason for Study: Other
Other Reason for Exam: neuro symptoms
CT HEAD STROKE ALERT W/o Cont Urgent
Comment:
Reason For Exam: aphasia, right facial droop
CT HEAD/NECK ANG STROKE ALERT Urgent
Comment:
Reason For Exam: aphasia, right facial droop
EKG- Treatment ONCE
08/21/25 10:59
Cardiovascular Evaluation Urgent
Comment: ADD ON
Complete Blood Count/With Diff Urgent
Comprehensive Metabolic Panel Urgent
Ferritin Urgent
Comment: ADD ON
Folate Urgent
Comment: ADD ON
Glycohemoglobin (HgbA1c) Urgent
PTT Urgent
Prothrombin Time Urgent
TSH Reflex To Free T4 Urgent
Comment: ADD ON
Troponin I Urgent
Vitamin B12 Urgent
Comment: ADD ON
08/21/25 11:24
Orthostatic Vital Signs As Directed
Orthostatic VS Frequency: BID
Comment: please wait 3 minutes after each position change before checking bp
08/21/25 11:31
Add On- LAB Routine
Tests Added?: folate, ferritin, TSH reflex, B12, hbA1c, lipid panel
Abnormal Lab Results
08/21/25
10:59
RBC 3.62 L 10^6/uL
(4.20-5.40)
Hgb 11.5 L g/dL
(12.0-16.0)
Hct 33.7 L %
(37.0-47.0)
MCH 31.8 H pg
(27.0-31.0)
RDW 14.7 H %
(11.5-14.5)
Monocytes % 10.2 H %
(1.7-9.3)
Chloride 109 H mmol/L
(98-107)
Carbon Dioxide 20 L mmol/L
(22-30)
Creatinine 0.5 L mg/dL
(0.6-1.0)
Glucose 101 H mg/dl
(70-99)
Alkaline Phosphatase 180 H U/L
(38-126)
08/21/25 10:59
08/21/25 10:59
Vital Signs
Initial and Last Documented VS:
Initial Vital Signs
Temp Pulse Resp BP Pulse Ox
98.1 F 94 16 145/75 100
08/21/25 10:39 08/21/25 10:39 08/21/25 10:39 08/21/25 10:39 08/21/25 10:39
Last Documented Vital Signs
Temp Pulse Resp BP Pulse Ox
98.1 F 94 16 145/75 100
08/21/25 10:39 08/21/25 10:39 08/21/25 10:39 08/21/25 10:39 08/21/25 11:33
MDM/Problems Addressed
MDM/Problems Addressed:
69-year-old female with history of recent subdural hemorrhage after a fall presenting to the emergency department for concern of expressive aphasia. Vital signs on arrival are normal.
Patient evaluated upon arrival to the hospital strokelike symptoms. Patient within the window for TNK, so stroke alert called. However, at this time patient is not a candidate for TNK given recent traumatic subdural hematoma 08/11. Regardless, on
my examination, noted to have some mild expressive aphasia, however speech is grossly intact. Additionally mild right sided facial drooping, with difficulty raising right eyebrow, otherwise grossly intact. Neurology at bedside soon after patient's
arrival with plan for CT/CTA/CT perfusion. Patient's arrived during evaluation, notes that her symptoms are already improving. Patient also notes that she took all her blood pressure medication today, that she previously had not been on
since her fall, which she is unsure if contributed to her symptoms. Plan for EKG, laboratory analysis, continued monitoring
11:50 - CT/CTA negative for acute process. Patient feels that her symptoms have resolved. Differential considerations at this time include TIA versus transient episode of hypotension from blood pressure medications. In discussion with neurology,
recommending that she restart her aspirin and discussed with her neurosurgeon about restarting Plavix. Otherwise at this time feel stable for discharge with close interval follow-up with her doctor. Patient had stitches in place in her right upper
eyebrow. She notes that they were placed after the fall on 08/11. Do appear time to be removed. They were removed without incident. However, still has stitches in the right parietal scalp which are to be maintained until follow-up visit with
neurosurgery. Return precautions discussed and patient verbalized understanding
*Pulse Oximetry
SaO2: 100
Oxygen Mode of Delivery: Room air
Patient hypoxic: no
*EKG
Interpreted by ED Provider?: Yes
EKG Intrepretation Date: 08/21/25
EKG Intrepretation Time: 12:08
Interpretation: abnormal
Comparison EKG: no changes (08/11/25)
Heart Rate: 76
Rate: normal
Rhythm: sinus
[place]: normal axis
Interval: normal interval
QRS Pattern: left bundle branch block
Ischemia: no ischemia
*Critical Care Note
Total Time (30-74mins, 75-104mins- exclusive of procedures): Not Applicable
ED Attending Note
-
Portions of this chart may have been created with voice recognition software.� Occasional wrong word or��sound alike� substitutions may have occurred due to the inherent limitations of voice recognition software.
Discharge Plan
Departure
Patient Disposition: Home (Routine Discharge)
Date of Disposition: 08/21/25
Time of Disposition: 12:05
Patient with high blood pressure during this ER visit?: No
Condition: Good
Discharge Problem:
Stroke-like symptoms
Instructions: Transient Ischemic Attack (DC)
Prescriptions:
No Action
bupropion HCl [Wellbutrin SR] 150 mg Tablet Sustained-Release 12 Hr
150 mg PO DAILY
sertraline 100 mg Tablet
100 mg PO DAILY
loperamide-simethicone 2-125 mg Tablet
1 tab PO Q3H PRN (Reason: diarrhea)
hydroxyzine pamoate 25 mg Capsule
25 mg DAILY PRN (Reason: anxiety)
clopidogrel 75 mg Tablet
75 mg PO DAILY Qty: 30 0RF
aspirin [Children's Aspirin] 81 mg Tablet,Chewable
81 mg PO DAILY Qty: 100 0RF
lisinopril 2.5 mg Tablet
2.5 mg PO DAILY Qty: 30 0RF
amoxicillin-pot clavulanate 875-125 mg Tablet
1 tab PO Q12 Qty: 8 0RF
rosuvastatin 20 mg Tablet
20 mg PO QPM Qty: 30 0RF
metoprolol tartrate 25 mg Tablet
12.5 mg PO BID Qty: 30 0RF
furosemide 40 mg Tablet
40 mg PO DAILY Qty: 30 0RF
potassium chloride 20 mEq Tablet,Er Particles/Crystals
40 meq PO DAILY Qty: 60 0RF
Referrals:
Marissa Isaac DO [Family Provider, Family Practice]
Activity Restrictions/Additional Instructions:
You were seen in the emergency department for episode of difficulty speaking
You were found to have reassuring vital signs and CT imaging of the brain as well as the vessels of your brain and neck. You were seen by the neurologist. Recommend that you restart your aspirin 81 mg and discussed with your neurosurgeon about
restarting Plavix.
Please follow-up closely with your primary care physician.
Return to the emergency department for any worsening of your symptoms, or any development of chest pain, difficulty breathing, abdominal pain with persistent vomiting and inability to tolerate food or liquid by mouth (concern for dehydration),
weakness, headache or confusion, fever greater than 100.4, or any additional symptoms that are concerning to you.
Thank you for choosing [facility].
Interventions
Interventions:
*Risk Screen - Suicide (C-SSRS) Last Done: 08/21/25 10:43
ED- Pulmonary Assessment Last Done: 08/21/25 11:57
ED- Neurological Assessment Last Done: 08/21/25 11:57
ED- Cardiac Assessment Last Done: 08/21/25 11:57
ED Swallowing Screen Last Done: 08/21/25 11:57
Discharge Date and Time
Print Language: FINNISH
[2025-08-21 11:31] LABS: Blood Urea Nitrogen 10 mg/dl (7-17)
[2025-08-21 11:32] LABS: Troponin I < 0.012 ng/ml
[2025-08-21 11:57] LABS: HDL Cholesterol 65 mg/dl; LDL Cholesterol, Calculated 96 mg/dl; Very Low Density Lipoprotein 29 mg/dl (0-30)
[2025-08-21 12:00] VITALS: BP 132/78
[2025-08-21 12:36] LABS: Glycohemoglobin (HgbA1c) 4.3 % (4.0-5.9)
[2025-08-21 16:29] LABS: Ferritin 91.6 ng/ml (11.1-264.0)
[2025-08-21 17:00] LABS: Folate 5.3 ng/ml (2.76-20); Vitamin B12 492 pg/ml (239-931)
== END 2025-08-21 12:17 | disposition home or self-care (01) ==
LOC: EMR 10:32
PROVIDERS: EMERGENCY PHYSICIAN Student in an Organized Health Care Education/Training Program; FAMILY PHYSICIAN Family Medicine
DX: R47.01 Aphasia (principal); R29.810 Facial weakness; I44.7 Left bundle-branch block, unspecified; E11.9 Type 2 diabetes mellitus without complications; I11.0 Hypertensive heart disease with heart failure; I50.22 Chronic systolic (congestive) heart failure; E78.5 Hyperlipidemia, unspecified; I25.2 Old myocardial infarction; F41.9 Anxiety disorder, unspecified; F32.A Depression, unspecified; M19.90 Unspecified osteoarthritis, unspecified site; Z82.3 Family history of stroke; Z79.02 Long term (current) use of antithrombotics/antiplatelets; Z79.82 Long term (current) use of aspirin; Z95.5 Presence of coronary angioplasty implant and graft; Z87.891 Personal history of nicotine dependence; Z85.038 Personal history of other malignant neoplasm of large intestine; Z88.5 Allergy status to narcotic agent; Z91.040 Latex allergy status
CPT/HCPCS: 99284; 70450; 70496; 70498; 80053; 80061; 82607; 82728; 82746; 83036; 84443; 84484; 85025; 85610; 85730; 93005; Q9967